=== PATIENT | female | born 1980 | race Caucasian/White ===

== ENCOUNTER 2018-07-10 02:55 | Emergency (ER) | payer OTHER ==
[2018-07-10 03:38] LABS: Absolute Lymphocytes (CBC) 2.5 K/uL (0.7-4.9); Absolute Monocytes 0.6 K/uL (0.1-1.3); Basophils % 0.6 % (0-1.3); Hematocrit 38.2 % (36.0-45.0); Lymphocytes % 30.3 % (15.3-44.8); MCH 31.6 pg (27.0-35.0); MCV 90.4 fL (80-100); MPV 8.5 fL (7.6-11.3); Monocytes % 7.7 % (3.3-12.3); RBC Red Blood Cell Count 4.23 M/uL (3.86-4.86)
[2018-07-10 03:41] LABS: Protime INR 1.03
[2018-07-10 03:52] LABS: Bilirubin Total 0.4 mg/dL (0.2-1.0); Potassium 4.1 mmol/L (3.5-5.1); Protein, Total 7.8 g/dL (6.4-8.2)
[2018-07-10 03:58] LABS: Urine Blood 2+ (NEG); Urine Glucose NEGATIVE (NEG); Urine Protein NEGATIVE (NEG); Urine Specific Gravity 1.015 (1.005-1.030); Urine pH 7.5 (5.0-7.0)
--- NOTE | 2018-07-10 04:55 | ER ---
Nurse's Notes [facility] Name: Madonna Khan Age: 37 yrs Sex: Female : 1980 Arrival Date: 07/10/2018 Time: 03:00 Bed 7 Private MD: Diagnosis: Dysfunctional uterine bleeding Presentation: 07/10 03:07 Presenting complaint: Patient states: she started her period last night and she woke up aa1 an hour after changing her pad and had completely soaked through her pad and a super tampon. Reports going to the restroom and had heavy bleeding and was passing lots of clots. Also c/o cramping. Transition of care: patient was not received from another setting of care. Onset of symptoms was July 09, 2018. Risk Assessment: Do you want to hurt yourself or someone else? Patient reports no desire to harm self or others. Initial Sepsis Screen: Does the patient meet any 2 criteria? No. Patient's initial sepsis screen is negative. Does the patient have a suspected source of infection? No. Patient's initial sepsis screen is negative. Care prior to arrival: None. 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 - Social history:: Smoking status: Patient/guardian denies using tobacco. - Ebola Screening: : No symptoms or risks identified at this time. Screenin:10 Abuse screen: Denies threats or abuse. Nutritional screening: No deficits noted. jd3 Tuberculosis screening: No symptoms or risk factors identified. Fall Risk Ambulatory Aid- None/Bed Rest/Nurse Assist (0 pts). Gait- Normal/Bed Rest/Wheelchair (0 pts) Mental Status- Oriented to own ability (0 pts). Total Lucero Fall Scale indicates No Risk (0-24 pts). Assessment: 03:08 General: Appears in no apparent distress. uncomfortable, Behavior is calm, cooperative, jd3 appropriate for age. Pain: Complains of pain in right lower quadrant and left lower quadrant Quality of pain is described as crampy. Neuro: Level of Consciousness is awake, alert, obeys commands, Oriented to person, place, time, situation, Appropriate for age. Cardiovascular: Capillary refill < 3 seconds Patient's skin is warm and dry. Respiratory: Airway is patent Respiratory effort is even, unlabored, Respiratory pattern is regular, symmetrical. GI: Abdomen is round Bowel sounds present X 4 quads. Abd is soft Abdomen is tender to palpation in right lower quadrant and left lower quadrant. : Last void was July 10, 2018. Reports vaginal bleeding that is. EENT: No signs and/or symptoms were reported regarding the EENT system. Derm: Skin is intact, Skin is dry, Skin is normal, Skin temperature is warm. Musculoskeletal: Circulation, motion, and sensation intact. Range of motion: intact in all extremities. 04:02 Reassessment: Patient appears in no apparent distress at this time. No changes from jd3 previously documented assessment. Patient and/or family updated on plan of care and expected duration. Pain level reassessed. Patient is alert, oriented x 3, equal unlabored respirations, skin warm/dry/pink. 05:01 Reassessment: Patient appears in no apparent distress at this time. Patient and/or jd3 family updated on plan of care and expected duration. Pain level reassessed. Patient is alert, oriented x 3, equal unlabored respirations, skin warm/dry/pink. Vital Signs: 03:11 BP 119 / 85; Pulse 80; Resp 16; Temp 98.9; Pulse Ox 99% on R/A; Weight 64.41 kg; Height aa1 5 ft. 6 in. (167.64 cm); Pain 6/10; 05:00 BP 109 / 76; Pulse 79; Resp 17 S; Pulse Ox 99% on R/A; jd3 03:11 Body Mass Index 22.92 (64.41 kg, 167.64 cm) aa1 ED Course: 03:00 Patient arrived in ED. al2 03:06 Rajat Andrew MD is Attending Physician. tw4 03:08 Cullen Lucas RN is Primary Nurse. jd3 03:10 Triage completed. aa1 03:10 Patient has correct armband on for positive identification. Bed in low position. Call jd3 light in reach. Side rails up X 1. Adult w/ patient. 03:10 Arm band placed on. jd3 03:30 Inserted saline lock: 20 gauge in right antecubital area, using aseptic technique. jd3 Blood collected. 05:18 No provider procedures requiring assistance completed. IV discontinued, intact, jd3 bleeding controlled, No redness/swelling at site. Pressure dressing applied. Administered Medications: No medications were administered Outcome: 04:54 Discharge ordered by . diego 05:18 Discharged to home ambulatory, with family. jd3 05:18 Condition: stable 05:18 Discharge instructions given to patient, family, Instructed on discharge instructions, follow up and referral plans. medication usage, Demonstrated understanding of instructions, follow-up care, medications, Prescriptions given X 1. 05:19 Patient left the ED. jd3 Signatures: Saniya Koroma, RN RN aa1 Cullen Lucas RN RN jd3 Janelle, Rajat Richter MD MD tw4
--- NOTE | 2018-07-10 04:55 | EDPHYS ---
Physician Documentation [facility] Name: Madonna Khan Age: 37 yrs Sex: Female : 1980 Arrival Date: 07/10/2018 Time: 03:00 Bed 7 Private MD: ED Physician Rajat Andrew HPI: 07/10 04:11 This 37 yrs old Female presents to ER via Ambulatory with complaints of tw4 Vaginal Bleeding. 04:11 The patient presents with vaginal bleeding that is heavy, with clots. Onset: The tw4 symptoms/episode began/occurred just prior to arrival, last night. Modifying factors: The symptoms are alleviated by nothing, the symptoms are aggravated by nothing. Associated signs and symptoms: Pertinent positives: cramping, Pertinent negatives: constipation, diarrhea, dyspareunia, dysuria, hematuria, nausea, urinary frequency, vaginal discharge, vomiting. Severity of symptoms: At their worst the symptoms were severe, in the emergency department the symptoms have improved. The patient is sexually active, reportedly has a single partner. The patient has not experienced similar symptoms in the past. 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 - Social history:: Smoking status: Patient/guardian denies using tobacco. - Ebola Screening: : No symptoms or risks identified at this time. ROS: 04:11 Positive for vaginal bleeding, Negative for injury or acute deformity, urinary tw4 symptoms. 04:11 Constitutional: Negative for fever, chills, and weight loss, Eyes: Negative for injury, pain, redness, and discharge, Cardiovascular: Negative for chest pain, palpitations, and edema, Respiratory: Negative for shortness of breath, cough, wheezing, and pleuritic chest pain, Abdomen/GI: Negative for abdominal pain, nausea, vomiting, diarrhea, and constipation, Back: Negative for injury and pain. 04:11 : Positive for pelvic pain, vaginal bleeding, Negative for injury or acute deformity, urinary symptoms, urinary frequency, small amounts, hematuria, burning with urination, difficulty urinating, bladder incontinence, foul smelling urine, vaginal discharge, vaginal itching, menstrual abnormality. Exam: 04:11 Constitutional: This is a well developed, well nourished patient who is awake, alert, tw4 and in no acute distress. Head/Face: Normocephalic, atraumatic. Vital Signs: 03:11 BP 119 / 85; Pulse 80; Resp 16; Temp 98.9; Pulse Ox 99% on R/A; Weight 64.41 kg; Height aa1 5 ft. 6 in. (167.64 cm); Pain 6/10; 05:00 BP 109 / 76; Pulse 79; Resp 17 S; Pulse Ox 99% on R/A; jd3 03:11 Body Mass Index 22.92 (64.41 kg, 167.64 cm) aa1 MDM: 03:06 Patient medically screened. tw4 04:24 Data reviewed: vital signs, nurses notes. Counseling: I had a detailed discussion with rust the patient and/or guardian regarding: the historical points, exam findings, and any diagnostic results supporting the discharge/admit diagnosis. Special discussion: I discussed with the patient/guardian in detail that at this point there is no indication for admission to the hospital. It is understood, however, that if the symptoms persist or worsen the patient needs to return immediately for re-evaluation. 07/10 03:07 Order name: CBC with Diff; Complete Time: 04:13 tw 07/10 04:13 Interpretation: Within normal limits. 07/10 03:07 Order name: CMP; Complete Time: 04:13 07/10 04:13 Interpretation: Normal except: BUN 20; GFR 70; AST 9; GLOB 3.8. 07/10 03:07 Order name: PT-INR; Complete Time: 04:13 07/10 04:13 Interpretation: Within normal limits: PT 12.1. 07/10 03:07 Order name: Ptt, Activated; Complete Time: 04:13 07/10 04:13 Interpretation: Within normal limits: PTT 30.5. 07/10 03:37 Order name: Urine Dipstick--Ancillary (enter results); Complete Time: 04:13 in 07/10 04:13 Interpretation: Normal except: UBLD 2+; UPH 7.5. 07/10 03:37 Order name: Urine --Ancillary (enter results); Complete Time: 04:13 mt 07/10 04:14 Interpretation: Within normal limits. tw4 07/10 03:07 Order name: Saline Lock; Complete Time: 03:37 tw4 07/10 03:19 Order name: Urine Test (obtain specimen); Complete Time: 03:37 jd3 07/10 03:37 Order name: Urine Dipstick-Ancillary (obtain specimen); Complete Time: 03:37 jd3 Administered Medications: No medications were administered Disposition: 07/10/18 04:54 Discharged to Home. Impression: Dysfunctional uterine bleeding. - Condition is Stable. - Discharge Instructions: Dysmenorrhea, [id number]. - Prescriptions for norgestrel- ethinyl estradiol 0.5-50 mg-mcg Oral tablet - take 1 tablet by ORAL route once daily; 28 tablet. - Work release form, Family Work Release, Medication Reconciliation Form, Thank You Letter, Antibiotic Education, Prescription Opioid Use form. - Follow up: Private Physician; When: Upon discharge from the Emergency Department; Reason: Further diagnostic work-up, Recheck today's complaints, Continuance of care, Re-evaluation by your physician. - Problem is new. - Symptoms have improved. Signatures: Dispatcher [employer] EDMS Saniya Koroma RN RN aa1 Cullen Lucas RN RN jd3 Rajat Andrew MD MD tw4 Corrections: (The following items were deleted from the chart) 05:19 04:54 07/10/2018 04:54 Discharged to Home. Impression: Dysfunctional uterine bleeding. jd3 Condition is Stable. Forms are Medication Reconciliation Form, Thank You Letter, Antibiotic Education, Prescription Opioid Use. Follow up: Private Physician; When: Upon discharge from the Emergency Department; Reason: Further diagnostic work-up, Recheck today's complaints, Continuance of care, Re-evaluation by your physician. Problem is new. Symptoms have improved. tw4
== END 2018-07-10 05:19 | disposition home or self-care (01) ==
LOC: ER 02:55
DX: N93.8 Other specified abnormal uterine and vaginal bleeding (principal)
CPT/HCPCS: 36415; 80053; 81003; 81025; 85025; 85610; 85730; 99283

== ENCOUNTER 2018-09-01 13:11 | Emergency (ER) | payer OTHER ==
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
[2018-09-01] MEDS ORDERED: BISACODYL 10 MG RECTAL SUPP ONE (15:04)
[2018-09-01] MEDS ORDERED: MAGNESIUM CITRATE 300 ML BOT ONE (15:05)
[2018-09-01] MEDS ORDERED: KETOROLAC 30 MG/ML INJ ONE (15:05)
[2018-09-01] MEDS ORDERED: HYDROCODONE/APAP 7.5/325 MG TAB ONE (15:06)
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
[2018-09-01 16:29] LABS: Urine Blood 1+ (NEG); Urine Glucose NEGATIVE (NEG); Urine Protein NEGATIVE (NEG); Urine pH 5.5 (5.0-7.0)
== END 2018-09-01 15:49 | disposition home or self-care (01) ==
LOC: ER 13:11
DX: S16.1XXA Strain of muscle, fascia and tendon at neck level, initial encounter (principal); V49.50XA Passenger injured in collision with unspecified motor vehicles in traffic accident, initial encounter
CPT/HCPCS: 70450; 71250; 72125; 81003; 81025; 96372; 99285

== ENCOUNTER 2019-03-21 15:39 | Emergency (ER) | payer OTHER ==
[2019-03-21] MEDS ORDERED: DEXAMETHASONE 10 MG/ML VIAL ONE (16:30)
[2019-03-21] MEDS ORDERED: METOCLOPRAMIDE 10 MG/2mL INJ ONE (16:31)
[2019-03-21] MEDS ORDERED: DIPHENHYDRAMINE 50 MG/ML VIAL ONE (16:31)
[2019-03-21] MEDS ORDERED: NA CHLORIDE 0.9% 1,000 ML ONE (16:31)
[2019-03-21] MEDS ORDERED: ONDANSETRON 4 MG/2 ML VIAL ONE (16:31)
[2019-03-21 16:33] LABS: Urine Blood NEGATIVE (NEG); Urine Glucose NEGATIVE (NEG); Urine Protein NEGATIVE (NEG); Urine Specific Gravity 1.005 (1.005-1.030); Urine pH 6.5 (5.0-7.0)
[2019-03-21 16:34] LABS: Absolute Lymphocytes (CBC) 1.8 K/uL (0.7-4.9); Absolute Monocytes 0.3 K/uL (0.1-1.3); Absolute Neutrophil 4.4 K/uL (1.8-8.0); Basophils % 1.2 % (0-1.3); Eosinophils % 0.8 % (0-4.4); Hematocrit 40.6 % (36.0-45.0); Lymphocytes % 27.5 % (15.3-44.8); MPV 8.6 fL (7.6-11.3); Monocytes % 5.1 % (3.3-12.3); RBC Red Blood Cell Count 4.47 M/uL (3.86-4.86)
[2019-03-21] MEDS ORDERED: KETOROLAC 30 MG/ML INJ ONE (16:34)
[2019-03-21 16:40] LABS: Protime INR 0.99
[2019-03-21 16:43] LABS: Magnesium 2.4 mg/dL (1.8-2.4)
--- NOTE | 2019-03-21 16:48 | RAD REPORT ---
EXAM DESCRIPTION: CT - Head Brain Wo Cont - 03/21/2019 4:38 pm CLINICAL HISTORY: HEADACHE COMPARISON: No comparisons TECHNIQUE: All CT scans are performed using dose optimization technique as appropriate and may inclu de automated exposure control or mA/KV adjustment according to patient size. FINDINGS: No intracranial hemorrhage, hydrocephalus or extra-axial fluid collection.No areas of brai n edema or evidence of midline shift. The paranasal sinuses and mastoids are clear. The calvarium is intact. IMPRESSION: No acute intracranial abnormality.
--- NOTE | 2019-03-21 18:03 | EDPHYS ---
Physician Documentation [facility] Name: Madonna Khan Age: 38 yrs Sex: Female : 1980 Arrival Date: 03/21/2019 Time: 15:42 Bed 16 Private MD: Prem De Anda V ED Physician Rishi Ricks HPI: 03/21 16:15 This 38 yrs old Female presents to ER via Ambulatory with complaints of cp Headache, Nausea. 16:15 The patient complains of pain to the left side of head radiating to back of head. cp 16:15 The patient describes the headache as aching, waxing and waning. Onset: The cp symptoms/episode began/occurred 3 day(s) ago. Associated signs and symptoms: Pertinent positives: nausea, Photophobia Pertinent negatives: altered mental status, fever, neck stiffness, paresthesias, rash, sinus congestion, sinus tenderness, vision loss, vomiting, weakness. 16:15 Severity of symptoms: in the emergency department the pain is unchanged, despite home cp interventions. 16:15 Headache History: The patient has had previous headaches and this one is similar to cp previous episodes. The symptoms are alleviated by nothing. Patient also reports menstrual bleeding times 2 weeks that is now light bleeding. 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 - Social history:: Smoking status: Patient/guardian denies using tobacco. - Ebola Screening: : No symptoms or risks identified at this time. ROS: 16:20 Constitutional: Negative for body aches, chills, fever, poor PO intake. cp 16:20 Eyes: Positive for photophobia, Negative for discharge, redness, vision loss. cp 16:20 Cardiovascular: Negative for chest pain, edema, palpitations. cp 16:20 Respiratory: Negative for cough, shortness of breath, wheezing. 16:20 Abdomen/GI: Positive for nausea, Negative for abdominal pain, vomiting, diarrhea, constipation, anorexia, black/tarry stool, rectal bleeding. 16:20 Back: Negative for pain at rest, pain with movement, radiated pain. 16:20 ENT: Negative for injury, pain, and discharge. cp 16:20 Neck: Negative for pain with movement, pain at rest, stiffness, swollen nodes. 16:20 : Positive for vaginal bleeding, Negative for urinary symptoms. 16:20 MS/extremity: Negative for injury or acute deformity, paresthesias. 16:20 Skin: Negative for cellulitis, rash. 16:20 Neuro: Positive for headache, Negative for altered mental status, dizziness, numbness, syncope, weakness. 16:20 All other systems are negative. Exam: 16:25 Constitutional: The patient appears in no acute distress, alert, awake, non-toxic, well cp developed, well nourished, uncomfortable. 16:25 Head/Face: Normocephalic, atraumatic. Eyes: Pupils equal round and reactive to light, cp extra-ocular motions intact. Lids and lashes normal. Conjunctiva and sclera are non-icteric and not injected. Cornea within normal limits. Periorbital areas with no swelling, redness, or edema. ENT: Nares patent. No nasal discharge, no septal abnormalities noted. Tympanic membranes are normal and external auditory canals are clear. Oropharynx with no redness, swelling, or masses, exudates, or evidence of obstruction, uvula midline. Mucous membranes moist. Neck: Trachea midline, no thyromegaly or masses palpated, and no cervical lymphadenopathy. Supple, full range of motion without nuchal rigidity, or vertebral point tenderness. No Meningismus. 16:25 Chest/axilla: Inspection: normal. 16:25 Cardiovascular: Rate: tachycardic, Rhythm: regular, Heart sounds: murmur, not appreciated, Edema: is not appreciated. 16:25 Respiratory: the patient does not display signs of respiratory distress, Respirations: normal, no use of accessory muscles, no retractions, no splinting, no tachypnea, labored breathing, is not present, Breath sounds: are clear throughout, no decreased breath sounds, no stridor, no wheezing. 16:25 Abdomen/GI: Inspection: abdomen appears normal, Bowel sounds: active, all quadrants, Palpation: abdomen is soft and non-tender, in all quadrants. 16:25 Back: pain, is absent, ROM is normal. 16:25 Musculoskeletal/extremity: Exam is negative for decreased range of motion, deformity, injury. 16:25 Skin: cellulitis, is not appreciated, no rash present. 16:25 Neuro: Orientation: to person, place \T\ time. Mentation: is normal, Cerebellar function: is grossly normal, Motor: is normal, Sensation: is normal. 17:37 ECG was reviewed by the Attending Physician. Vital Signs: 15:47 BP 145 / 90; Pulse 105; Resp 16; Temp 98.4; Pulse Ox 99% on R/A; Weight 65.32 kg; la1 Height 5 ft. 6 in. (167.64 cm); Pain 10/10; 17:01 BP 112 / 82; Pulse 75; Resp 17; Pulse Ox 99% on R/A; tw2 17:17 BP 110 / 73 Supine; Pulse 83; tw2 17:17 BP 115 / 79 Sitting; Pulse 75; tw2 17:17 BP 106 / 87 Standing; Pulse 80; tw2 17:57 BP 111 / 65; Pulse 66; Resp 17; Pulse Ox 100% on R/A; Pain 5/10; tw2 15:47 Body Mass Index 23.24 (65.32 kg, 167.64 cm) la1 MDM: 16:00 Patient medically screened. 16:30 Differential diagnosis: hypertensive headache, meningoencephalitis, migraine, cp sinusitis, subarachnoid bleed, tension headache, anemia. 18:01 ED course: Patient resting in exam room and reports headache improved. 18:02 Data reviewed: vital signs, nurses notes, lab test result(s), EKG, radiologic studies, cp CT scan. 18:02 Test interpretation: by ED physician or midlevel provider: ECG. Counseling: I had a detailed discussion with the patient and/or guardian regarding: the historical points, exam findings, and any diagnostic results supporting the discharge/admit diagnosis, lab results, radiology results, to return to the emergency department if symptoms worsen or persist or if there are any questions or concerns that arise at home. Response to treatment: the patient's symptoms have markedly improved after treatment, and as a result, I will discharge patient. 03/21 16:05 Order name: Urine Dipstick--Ancillary (enter results); Complete Time: 16:52 eb 03/21 16:11 Order name: CBC with Diff; Complete Time: 16:52 03/21 17:05 Interpretation: Reviewed. 03/21 16:11 Order name: BMP; Complete Time: 16:52 cp 03/21 17:05 Interpretation: Normal except: CL 110; GFR 81. cp 03/21 16:11 Order name: Magnesium; Complete Time: 16:52 cp 03/21 16:11 Order name: PT-INR; Complete Time: 16:52 cp 03/21 16:11 Order name: Test, Serum; Complete Time: 17:05 cp 03/21 16:13 Order name: CT Head Brain wo Cont; Complete Time: 16:52 cp 03/21 16:53 Interpretation: Report reviewed. cp 03/21 16:26 Order name: PTT, Activated Partial Thromb; Complete Time: 16:52 EDMS 03/21 16:11 Order name: Orthostatics; Complete Time: 17:17 cp 03/21 16:11 Order name: EKG; Complete Time: 16:12 cp 03/21 16:11 Order name: EKG - Nurse/Tech; Complete Time: 17:23 cp 03/21 16:11 Order name: Urine Dipstick-Ancillary (obtain specimen); Complete Time: 16:28 cp 03/21 16:11 Order name: Urine Test (obtain specimen); Complete Time: 16:28 cp 03/21 16:11 Order name: IV; Complete Time: 16:28 cp EC:37 Rate is 69 beats/min. Rhythm is regular. MO interval is normal. QRS interval is normal. cp QT interval is normal. T waves are Inverted in lead aVL. Interpreted by me. Reviewed by me. Administered Medications: 16:24 Drug: Zofran 4 mg Route: IVP; Site: left antecubital; tw2 17:15 Follow up: Response: No adverse reaction; Nausea is decreased tw2 16:26 Drug: Reglan 10 mg Route: IVP; Site: left antecubital; tw2 17:16 Follow up: Response: No adverse reaction tw2 16:30 Drug: Benadryl 25 mg Route: IVP; Site: left antecubital; tw2 17:16 Follow up: Response: No adverse reaction tw2 16:32 Drug: NS 0.9% 1000 ml Route: IV; Rate: 1 bolus; Site: left antecubital; tw2 18:04 Follow up: Response: No adverse reaction; IV Status: Completed infusion; IV Intake: tw2 1000ml 17:12 Drug: TORadol - Ketorolac 15 mg Route: IVP; Site: left antecubital; tw2 18:04 Follow up: Response: No adverse reaction; Pain is decreased tw2 17:15 Drug: Decadron - Dexamethasone 10 mg Route: IVP; Site: left antecubital; tw2 18:04 Follow up: Response: No adverse reaction tw2 Disposition: 18:36 Co-signature as Attending Physician, Rishi Ricks MD. rn Disposition: 03/21/19 18:02 Discharged to Home. Impression: Headache. - Condition is Stable. - Discharge Instructions: Migraine Headache. - Prescriptions for Ibuprofen 800 mg Oral Tablet - take 1 tablet by ORAL route every 8 hours As needed take with food; 30 tablet. Zofran 4 mg Oral Tablet - take 1 tablet by ORAL route every 12 hours As needed; 20 tablet. - Medication Reconciliation Form, Thank You Letter, Antibiotic Education, Prescription Opioid Use, Work release form, Family Work Release form. - Follow up: Private Physician; When: 1 - 2 days; Reason: Recheck today's complaints. - Problem is new. - Symptoms have improved. Signatures: Dispatcher [employer] [facility] Rishi Ricks MD MD rn Attema, Lee, RN RN la1 Mesfin Mohan PA PA cp Nicole Villafuerte RN RN tw2 Corrections: (The following items were deleted from the chart) 16:26 16:13 PTT, ACTIVATED+[id number].BRZ ordered. [facility] 18:12 18:02 03/21/2019 18:02 Discharged to Home. Impression: Headache. Condition is Stable. tw2 Forms are Work release form, Family Work Release, Medication Reconciliation Form, Thank You Letter, Antibiotic Education, Prescription Opioid Use. Follow up: Private Physician; When: 1 - 2 days; Reason: Recheck today's complaints. Problem is new. Symptoms have improved. cp
--- NOTE | 2019-03-21 18:03 | ER ---
Nurse's Notes [facility] Name: Madonna Khan Age: 38 yrs Sex: Female : 1980 Arrival Date: 03/21/2019 Time: 15:42 Bed 16 Private MD: Prem De Anda V Diagnosis: Headache Presentation: 03/21 15:46 Presenting complaint: Patient states: I have had a migraine since Saturday, yesterday la1 I took fioracet and it helped but today I cant get it to go away. Transition of care: patient was not received from another setting of care. Onset of symptoms was March 21, 2019. Risk Assessment: Do you want to hurt yourself or someone else? Patient reports no desire to harm self or others. Initial Sepsis Screen: Does the patient meet any 2 criteria? No. Patient's initial sepsis screen is negative. Does the patient have a suspected source of infection? No. Patient's initial sepsis screen is negative. Care prior to arrival: None. 15:46 Method Of Arrival: Ambulatory la1 15:46 Acuity: JOSUE 3 la1 Triage Assessment: 15:50 Headache History: Other pt reports "i have a lot of stress right now". General: Appears tw2 in no apparent distress. uncomfortable. Pain: Pain Also complains of photophobia. 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 - Social history:: Smoking status: Patient/guardian denies using tobacco. - Ebola Screening: : No symptoms or risks identified at this time. Screenin:52 Abuse screen: Denies threats or abuse. Nutritional screening: No deficits noted. tw2 Tuberculosis screening: No symptoms or risk factors identified. Fall Risk None identified. Assessment: 15:50 General: Appears in no apparent distress. uncomfortable, Behavior is calm, cooperative, tw2 appropriate for age. Pain: Complains of pain in "headache" Pain began 4 days ago. Neuro: Level of Consciousness is awake, alert, obeys commands, Oriented to person, place, time, situation. Cardiovascular: Heart tones S1 S2 Patient's skin is warm and dry. Respiratory: Airway is patent Respiratory effort is even, unlabored, Respiratory pattern is regular, symmetrical, Breath sounds are clear bilaterally. GI: Abdomen is flat, Bowel sounds present X 4 quads. Reports nausea. : No signs and/or symptoms were reported regarding the genitourinary system. EENT: No signs and/or symptoms were reported regarding the EENT system. Derm: No signs and/or symptoms reported regarding the dermatologic system. Musculoskeletal: Range of motion: intact in all extremities. 16:04 Reassessment: provider at bedside at this time. tw2 17:01 Reassessment: Patient appears in no apparent distress at this time. Patient and/or tw2 family updated on plan of care and expected duration. Pain level reassessed. Patient is alert, oriented x 3, equal unlabored respirations, skin warm/dry/pink. 17:58 Reassessment: Patient appears in no apparent distress at this time. Patient and/or tw2 family updated on plan of care and expected duration. Pain level reassessed. Patient is alert, oriented x 3, equal unlabored respirations, skin warm/dry/pink. Patient states feeling better. Patient states symptoms have improved. Vital Signs: 15:47 BP 145 / 90; Pulse 105; Resp 16; Temp 98.4; Pulse Ox 99% on R/A; Weight 65.32 kg; la1 Height 5 ft. 6 in. (167.64 cm); Pain 10/10; 17:01 BP 112 / 82; Pulse 75; Resp 17; Pulse Ox 99% on R/A; tw2 17:17 BP 110 / 73 Supine; Pulse 83; tw2 17:17 BP 115 / 79 Sitting; Pulse 75; tw2 17:17 BP 106 / 87 Standing; Pulse 80; tw2 17:57 BP 111 / 65; Pulse 66; Resp 17; Pulse Ox 100% on R/A; Pain 5/10; tw2 15:47 Body Mass Index 23.24 (65.32 kg, 167.64 cm) la1 ED Course: 15:42 Patient arrived in ED. mr 15:42 Prem De Anda MD is Private Physician. mr 15:46 Triage completed. la1 15:47 Arm band placed on right wrist. la1 15:52 Villafuerte, Nicole, RN is Primary Nurse. tw2 15:53 Bed in low position. Call light in reach. Pulse ox on. NIBP on. tw2 16:00 Mesfin Mohan PA is PHCP. cp 16:00 Rishi Ricks MD is Attending Physician. cp 16:27 Initial lab(s) drawn, by ct, sent to lab. Inserted saline lock: 22 gauge in left kj1 antecubital area, using aseptic technique. 16:27 Urine collected: clean catch specimen, clear. kj1 16:28 Test, Serum Sent. kj1 16:[address] mw3 16:38 CT Head Brain wo Cont In Process Unspecified. EDMS 16:38 CT completed. Patient tolerated procedure well. Patient moved back from CT. mw3 18:11 No provider procedures requiring assistance completed. IV discontinued, intact, tw2 bleeding controlled, No redness/swelling at site. Pressure dressing applied. Administered Medications: 16:24 Drug: Zofran 4 mg Route: IVP; Site: left antecubital; tw2 17:15 Follow up: Response: No adverse reaction; Nausea is decreased tw2 16:26 Drug: Reglan 10 mg Route: IVP; Site: left antecubital; tw2 17:16 Follow up: Response: No adverse reaction tw2 16:30 Drug: Benadryl 25 mg Route: IVP; Site: left antecubital; tw2 17:16 Follow up: Response: No adverse reaction tw2 16:32 Drug: NS 0.9% 1000 ml Route: IV; Rate: 1 bolus; Site: left antecubital; tw2 18:04 Follow up: Response: No adverse reaction; IV Status: Completed infusion; IV Intake: tw2 1000ml 17:12 Drug: TORadol - Ketorolac 15 mg Route: IVP; Site: left antecubital; tw2 18:04 Follow up: Response: No adverse reaction; Pain is decreased tw2 17:15 Drug: Decadron - Dexamethasone 10 mg Route: IVP; Site: left antecubital; tw2 18:04 Follow up: Response: No adverse reaction tw2 Intake: 18:04 IV: 1000ml; Total: 1000ml. tw2 Outcome: 18:02 Discharge ordered by . cp 18:11 Discharged to home ambulatory, with significant other. tw2 18:11 Condition: stable 18:11 Discharge instructions given to patient, significant other, Instructed on discharge instructions, follow up and referral plans. medication usage, Demonstrated understanding of instructions, follow-up care, medications, Prescriptions given X 2. 18:12 Patient left the ED. tw2 Signatures: Dispatcher [employer] ED TinoJacque MoreliaMickey, RN RN la1 Mesfin Mohan PA PA cp Wise, Tara, RN RN tw2 Veronica Barros 3 Afua Gonzales kj1
--- NOTE | 2019-03-22 08:47 | EKG ---
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
== END 2019-03-21 18:12 | disposition home or self-care (01) ==
LOC: ER 15:39
DX: R51 Headache (principal)
CPT/HCPCS: 36415; 70450; 80048; 81003; 83735; 84703; 85025; 85610; 85730; 93005; 96361; 96374; 96375; 99284; J1100; J2405; J2765; J7030

== ENCOUNTER 2020-08-23 15:45 | Emergency (ER) | payer OTHER ==
--- OUTSIDE RECORDS SUMMARY | 2020-08-23 16:01 | XMS REPORT | Continuity of Care Document ---
:1980 Author Organization [facility] t Address [address] [place] [address] Dr. Castelan [address] [place] [id number] Care Team Providers Name Role Phone Unavailable Unavailable Unavailable Problems This patient has no known problems. Allergies, Adverse Reactions, Alerts This patient has no known allergies or adverse reactions. Medications This patient has no known medications. Procedures This patient has no known procedures. Results This patient has no known results.
[2020-08-23] MEDS ORDERED: MEPERIDINE HCL 50 MG/ML ONE (17:34)
[2020-08-23] MEDS ORDERED: ONDANSETRON 4 MG/2 ML VIAL ONE (17:34)
[2020-08-23 17:42] LABS: Absolute Lymphocytes (CBC) 2.4 K/uL (0.7-4.9); Basophils % 1.2 % (0-1.3); Hematocrit 39.5 % (36.0-45.0); Lymphocytes % 25.3 % (15.3-44.8); RBC Red Blood Cell Count 4.45 M/uL (3.86-4.86)
[2020-08-23] MEDS ORDERED: PROMETHAZINE INJ 25 MG/ML AMP ONE (17:47)
[2020-08-23 17:54] LABS: Urine Blood NEGATIVE (NEG); Urine Glucose NEGATIVE (NEG); Urine Protein NEGATIVE (NEG); Urine Specific Gravity 1.015 (1.005-1.030)
--- NOTE | 2020-08-23 17:59 | RAD REPORT ---
EXAM DESCRIPTION: CT - Abdomen Pelvis W Contrast - 08/23/2020 5:50 pm CLINICAL HISTORY: RLQ abd pain, rule out appendicitis COMPARISON: Abdomen Pelvis W Contrast dated 02/16/2016 TECHNIQUE: Biphasic, helical CT imaging of the abdomen and pelvis was performed following 100 ml non -ionic IV contrast. No oral contrast administered. All CT scans are performed using dose optimization technique as appropriate and may include automated exposure control or mA/KV adjustment according to patient size. FINDINGS: No suspicious findings in the lung bases. The liver, spleen, and pancreas show no suspicious findings. Gallbladder and biliary tree are also wi thout suspicious finding. Symmetric renal function is seen with no hydronephrosis or suspicious renal mass. No pyelonephritis o r acute parenchymal process. No bladder abnormalities. No adrenal abnormalities. No uterine or left ovarian abnormality seen. Right ovary contains a 3.1 centimeter cyst. No dilated bowel loops or bowel wall thickening. Appendix is not clearly defined. No suspicion for ac [place] appendicitis. No free air or pneumatosis. Trace amount of fluid in the cul de sac is within dinesh l physiologic limits. No hernia, mass or bulky lymphadenopathy. No suspicious bony findings. IMPRESSION: Contrast enhanced CT abdomen and pelvis showing no emergent finding. Appendicitis is not suspected. The patient does have a 3.1 centimeter right ovarian cyst.
[2020-08-23 18:00] LABS: Urine Bacteria <20 /HPF (<20); Urine Culture Reflex Order NOT NEEDED; Urine RBC NONE SEEN /HPF (NONE SEEN)
[2020-08-23 18:09] LABS: ALT/SGPT 18 U/L (12-78); AST/SGOT 14 U/L (15-37); Albumin 3.9 g/dL (3.4-5.0); Alkaline Phosphatase 73 U/L (45-117); BUN Blood Urea Nitrogen 13 mg/dL (7-18); Bicarbonate 29 mmol/L (21-32); Bilirubin Direct < 0.1 mg/dL (0-0.2); Bilirubin Total 0.3 mg/dL (0.2-1.0); Glucose Level 87 mg/dL (74-106); Lipase 118 U/L (73-393); Potassium 3.4 mmol/L (3.5-5.1); Protein, Total 8.1 g/dL (6.4-8.2); Sodium Level 139 mmol/L (136-145)
--- NOTE | 2020-08-23 18:21 | EDPHYS ---
Physician Documentation [facility] Name: Madonna Khan Age: 40 yrs Sex: Female : 1980 Arrival Date: 08/23/2020 Time: 15:47 Bed 16 Private MD: ED Physician Rishi Ricks HPI: 08/23 18:00 This 40 yrs old Female presents to ER via Ambulatory with complaints of rn Abdominal Pain. 18:00 The patient presents with abdominal pain right lower quadrant. Onset: The rn symptoms/episode began/occurred 2 day(s) ago. The symptoms do not radiate. Associated signs and symptoms: Pertinent positives: nausea and vomiting, Pertinent negatives: anorexia, blood in stools, fever. Modifying factors: The symptoms are alleviated by nothing, the symptoms are aggravated by nothing. Severity of pain: At its worst the pain was moderate in the emergency department the pain has improved. The patient has not experienced similar symptoms in the past. Reports 2 days of RLQ abd pain, + nausea, no fever, no diarrhea, no trauma. . 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 - Social history:: Smoking status: Patient denies any tobacco usage or history of. - Family history:: not pertinent. - Hospitalizations: : No recent hospitalization is reported. ROS: 18:00 Constitutional: Negative for fever, chills, and weight loss, Eyes: Negative for injury, rn pain, redness, and discharge, Cardiovascular: Negative for chest pain, palpitations, and edema, Respiratory: Negative for shortness of breath, cough, wheezing, and pleuritic chest pain, Abdomen/GI: Negative for diarrhea, and constipation, MS/Extremity: Negative for injury and deformity, Skin: Negative for injury, rash, and discoloration, Neuro: Negative for headache, weakness, numbness, tingling, and seizure. Exam: 18:00 Constitutional: This is a well developed, well nourished patient who is awake, alert, rn and in no acute distress. Head/Face: Normocephalic, atraumatic. Cardiovascular: Regular rate and rhythm. No pulse deficits. Respiratory: No increased work of breathing, no retractions or nasal flaring. Abdomen/GI: soft, mild RLQ tenderness Skin: Warm, dry MS/ Extremity: Pulses equal, no cyanosis. Neuro: Awake and alert, GCS 15 Vital Signs: 15:52 BP 115 / 90; Pulse 90; Resp 17 S; Temp 98.1(O); Pulse Ox 98% on R/A; Weight 76.66 kg jd3 (R); Height 5 ft. 6 in. (167.64 cm) (R); Pain 9/10; 18:00 BP 124 / 72; Pulse 81; Resp 17; Pulse Ox 100% ; jl7 15:52 Body Mass Index 27.28 (76.66 kg, 167.64 cm) jd3 MDM: 17:02 Patient medically screened. rn 18:19 Differential diagnosis: appendicitis, non-specific abd pain, ovarian cyst. Data rn reviewed: vital signs, nurses notes, lab test result(s), radiologic studies, CT scan, and as a result, I will discharge patient. Counseling: I had a detailed discussion with the patient and/or guardian regarding: the historical points, exam findings, and any diagnostic results supporting the discharge/admit diagnosis, lab results, radiology results, the need for outpatient follow up, to return to the emergency department if symptoms worsen or persist or if there are any questions or concerns that arise at home. Special discussion: Based on the patient's Hx, exam, and Dx evaluation, there is no indication for emergent surgery or inpatient Tx. It is understood by the patient/guardian that if the Sx's persist or worsen they need to return immediately for re-evaluation. I discussed with the patient/guardian in detail that at this point there is no indication for admission to the hospital. It is understood, however, that if the symptoms persist or worsen the patient needs to return immediately for re-evaluation. 08/23 17: Order name: Basic Metabolic Panel; Complete Time: 18: rn 08/23 17: Order name: CBC with Diff; Complete Time: 18:07 rn 08/23 17: Order name: Hepatic Function; Complete Time: 18: rn 08/23 17: Order name: Lipase; Complete Time: 18: rn 08/23 17:11 Order name: Urine Microscopic Only; Complete Time: 18:07 rn 08/23 17:36 Order name: Urine Dipstick--Ancillary (enter results); Complete Time: 18:07 bd 08/23 17:11 Order name: IV Saline Lock; Complete Time: 17:30 rn 08/23 17:11 Order name: Labs collected and sent; Complete Time: 17:30 rn 08/23 17:11 Order name: CT Abd/Pelvis - IV Contrast Only; Complete Time: 18:07 rn 08/23 17:11 Order name: Urine Dipstick-Ancillary (obtain specimen); Complete Time: 17:30 rn 08/23 17:36 Order name: Urine --Ancillary (enter results); Complete Time: 18:07 bd Administered Medications: 17:25 Drug: Zofran (Ondansetron) 4 mg Route: IVP; Site: left antecubital; ca1 17:30 Follow up: Response: No adverse reaction; Nausea unchanged jl7 17:27 Drug: Demerol 25 mg {Note: rass 0.} Route: IVP; Site: left antecubital; ca1 17:50 Follow up: Response: No adverse reaction; Pain is decreased jl7 17:34 Drug: Phenergan 12.5 mg Route: IVP; Site: left antecubital; jl7 18:00 Follow up: Response: No adverse reaction; Nausea is decreased jl7 Disposition: 08/23/20 18:20 Discharged to Home. Impression: Lower abdominal pain, unspecified, Unspecified ovarian cysts. - Condition is Stable. - Discharge Instructions: Abdominal Pain, Adult, Ovarian Cyst. - Medication Reconciliation Form, Thank You Letter, Antibiotic Education, Prescription Opioid Use form. - Follow up: Private Physician; When: As needed; Reason: Recheck today's complaints, Re-evaluation by your physician. - Problem is new. - Symptoms have improved. Signatures: Dispatcher [employer] EDRishi Ayala MD MD rn Leal, Jahala, RN RN jl7 Cullen Lucas RN RN jd3 Emily Reyes RN RN ca1 Corrections: (The following items were deleted from the chart) 18:35 18:20 08/23/2020 18:20 Discharged to Home. Impression: Lower abdominal pain, jl7 unspecified; Unspecified ovarian cysts. Condition is Stable. Forms are Medication Reconciliation Form, Thank You Letter, Antibiotic Education, Prescription Opioid Use. Follow up: Private Physician; When: As needed; Reason: Recheck today's complaints, Re-evaluation by your physician. Problem is new. Symptoms have improved. rn
--- NOTE | 2020-08-23 18:21 | ER ---
Nurse's Notes [facility] Name: Madonna Khan Age: 40 yrs Sex: Female : 1980 Arrival Date: 08/23/2020 Time: 15:47 Bed 16 Private MD: Diagnosis: Lower abdominal pain, unspecified;Unspecified ovarian cysts Presentation: 08/23 15:50 Chief complaint: Patient states: "am having abdominal pain in the lower right side and jd3 the constet pressure of needing to poop, but i only go a little at the time.". Coronavirus screen: At this time, the client does not indicate any symptoms associated with coronavirus-19. Ebola Screen: Patient negative for fever greater than or equal to 101.5 degrees Fahrenheit, and additional compatible Ebola Virus Disease symptoms. Initial Sepsis Screen: Does the patient meet any 2 criteria? No. Patient's initial sepsis screen is negative. Does the patient have a suspected source of infection? No. Patient's initial sepsis screen is negative. Risk Assessment: Do you want to hurt yourself or someone else? Patient reports no desire to harm self or others. Onset of symptoms was August 23, 2020. 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 - Social history:: Smoking status: Patient denies any tobacco usage or history of. - Family history:: not pertinent. - Hospitalizations: : No recent hospitalization is reported. Screenin:05 Abuse screen: Denies threats or abuse. Denies injuries from another. Nutritional ca1 screening: No deficits noted. Tuberculosis screening: No symptoms or risk factors identified. Fall Risk IV access (20 points). Assessment: 17:05 General: Appears in no apparent distress. comfortable, Behavior is calm, cooperative, ca1 appropriate for age. Pain: Complains of pain in right lower quadrant Pain does not radiate. Pain currently is 7 out of 10 on a pain scale. Pain began 2-3 days ago. Is intermittent. Neuro: Level of Consciousness is awake, alert, obeys commands, Oriented to person, place, time, situation. Cardiovascular: Heart tones S1 S2 present Capillary refill < 3 seconds Patient's skin is warm and dry. Respiratory: Airway is patent Respiratory effort is even, unlabored, Respiratory pattern is regular, symmetrical, Breath sounds are clear bilaterally. GI: Abdomen is flat, non-distended, Bowel sounds present X 4 quads. Abd is soft X 4 quads Abdomen is tender to palpation in right lower quadrant Reports nausea. : No signs and/or symptoms were reported regarding the genitourinary system. EENT: No signs and/or symptoms were reported regarding the EENT system. Derm: Skin is intact, is healthy with good turgor, Skin is pink, warm \\T\\ dry. Musculoskeletal: Circulation, motion, and sensation intact. Capillary refill < 3 seconds. 18:00 Reassessment: Patient appears in no apparent distress at this time. Patient and/or jl7 family updated on plan of care and expected duration. Pain level reassessed. Patient is alert, oriented x 3, equal unlabored respirations, skin warm/dry/pink. Patient states feeling better. Patient states symptoms have improved. Vital Signs: 15:52 BP 115 / 90; Pulse 90; Resp 17 S; Temp 98.1(O); Pulse Ox 98% on R/A; Weight 76.66 kg jd3 (R); Height 5 ft. 6 in. (167.64 cm) (R); Pain 9/10; 18:00 BP 124 / 72; Pulse 81; Resp 17; Pulse Ox 100% ; jl7 15:52 Body Mass Index 27.28 (76.66 kg, 167.64 cm) jd3 ED Course: 15:47 Patient arrived in ED. mr 15:52 Triage completed. jd3 15:52 Arm band placed on. jd3 17:02 Rishi Ricks MD is Attending Physician. rn 17:05 Patient has correct armband on for positive identification. Placed in gown. Bed in low ca1 position. Call light in reach. Side rails up X 1. Pulse ox on. NIBP on. Warm blanket given. 17:10 Christine Benoit RN is Primary Nurse. jl7 17:23 No provider procedures requiring assistance completed. Initial lab(s) drawn, by ia, ca1 sent to lab. Urine collected: clean catch specimen, clear. Inserted saline lock: 20 gauge in left antecubital area, using aseptic technique. Blood collected. 17:50 CT Abd/Pelvis - IV Contrast Only In Process Unspecified. EDMS 18:35 IV discontinued, intact, bleeding controlled, No redness/swelling at site. Pressure jl7 dressing applied. Administered Medications: 17:25 Drug: Zofran (Ondansetron) 4 mg Route: IVP; Site: left antecubital; ca1 17:30 Follow up: Response: No adverse reaction; Nausea unchanged jl7 17:27 Drug: Demerol 25 mg {Note: rass 0.} Route: IVP; Site: left antecubital; ca1 17:50 Follow up: Response: No adverse reaction; Pain is decreased jl7 17:34 Drug: Phenergan 12.5 mg Route: IVP; Site: left antecubital; jl7 18:00 Follow up: Response: No adverse reaction; Nausea is decreased jl7 Outcome: 18:20 Discharge ordered by . rn 18:35 Discharged to home via wheelchair, with family. jl7 18:35 Condition: stable 18:35 Discharge instructions given to patient, family, Instructed on discharge instructions, follow up and referral plans. Demonstrated understanding of instructions, follow-up care. 18:35 Patient left the ED. jl7 Signatures: Dispatcher [employer] THUYID Jacque Jiménez mr RicksRishi MD MD rn Leal, Jahala, RN RN jl7 Cullen Lucas RN RN jd3 Acob, Cheryl, RN RN ca1
[2020-08-23 19:21] VITALS: TEMP 98.1
[2020-08-23 19:23] VITALS: BP 124/72; O2SAT 100
== END 2020-08-23 18:35 | disposition home or self-care (01) ==
LOC: ER 15:45
DX: N83.209 Unspecified ovarian cyst, unspecified side (principal)
CPT/HCPCS: 85025; 80048; 36415; 81025; 82565; 80076; 83690; 74177; Q9967; J2550; J2175; J2405; 81003; 81015; 96374; 96375; 99284

== ENCOUNTER 2022-03-07 16:16 | Inpatient (IN) | payer OTHER ==
--- OUTSIDE RECORDS SUMMARY | 2022-03-07 16:18 | XMS REPORT | Continuity of Care Document ---
:1980 Author Organization [facility] t Address [address] [place] [address] Care Team Providers Name Role Phone Noel Mcintosh Attending Clinician Unavailable Noel Mcintosh Admitting Clinician Unavailable Payers Payer Name Policy Type Policy Number Effective Date Expiration Date S ource Problems This patient has no known problems. Allergies, Adverse Reactions, Alerts Allergy Allergy Status Severity Reaction(s) Onset Inactive Treating Comm ents Source Name Type Date Date Clinician HYDROCOD DA Active SV NAUSEA/VOMIT HC A ONE ING 02-14 [place] 00:00: d 00 [facility] No Known DA Active U [facility] Allergie 02-14 [place] s 00:00: d 00 [facility] morphine DA Active SV ANXIETY [facility] 02-14 [place] 00:00: d 00 [facility] tramadol DA Active U HEADACHE [facility] 02-14 [place] 00:00: d 00 [facility] Medications This patient has no known medications. Procedures This patient has no known procedures. Encounters Start End Encounter Admission Attending Care Care Encounter Source Date/Time Date/Time Type Type Clinicians Facility Department ID 2022-02-14 Inpatient EL Kadiyala, HCAPM DAYS [id number] [facility] 14:00:00 Syeda [id number] [facility] 2022-02-15 2022-02-15 Outpatient EL Hiralyala, HCAPM HCAPM [id number] [facility] 10:30:00 10:30:[facility] 2022-02-15 2022-02-15 Outpatient EL Kadiyala, HCAPM DAYS [id number] [facility] 10:30:00 10:30:00 Syeda [id number] [facility] Results Test Description Test Time Test Comments Results Result Comments Source SURGICAL 2022-02-19 18:11:00 Test Item Value Reference Range Interpretation Comme amaya SURGICAL RUN DATE: (test 02/19/22 H MAURI Valdez [place] - LAB PAGE 1 RUN TIME: 1810 code = Specimen Inquiry RUN USER: INTERFACE SR) PATIENT: KISHA MCKEON LOC: KEONAntoinette U #: [id number] AGE/SX: 41/ F ROOM: RE02/15/22[facility]: Syeda Mcintosh : 76 BED: DIS: STATUS: BABAK CHAWLA TLOC: SPEC #: [id number]:[id number] RECD: STATUS: HA VIEYRA #: [id number] TREMAINE: 02/15/22-[address] [facility] [address]: Syeda Mcintosh MD ENTERED: 02/16/22 TYPE: SURGICAL OT DR: ORDERED: [id number], ANATOMIC SPEC, SPECIMEN TRACK PROCEDURES: [id number] (02/19/22-160) SPECIMEN TRACK (02/16/22-632) TISSUES: A. UTERUS - UTERUS WITH CERVIX, B. FALLOPIAN TUBE NOS - BILATERAL FALLOPIAN TUBES FINAL DIAGNOSIS Uterus (148 g), fallopian tubes, hysterectomy and bilateral salpingectomy: - Cervix, minimal chronic cervicitis with few Nabothian cysts- Endometrium, proliferative pattern- Myome trium, adenomyosis, mild- Serosa, no morphological alteration Fallopian tubes with fimbriated ends:- Wall and lumen identified, bilaterally; vascular congestion at fimbriated ends Comment: Negative for a typia/malignancy. Suggest clinical correlation. GROSS DESCRIPTION Uterus with bilateral fallop britney tubes. Received is a uterus with a detached bilateralfallopian tubes. The uterus weighs 148 g. It measures cornu to cornu 7 cm posterioranterior 5.5 cm and from fundus to cervix 9.5 cm. The cervix m easures 3.6 x 3 cm with acervical os transverse diameter of 1.2 cm. It is bivalved to reveal a cervica l canal of a4.5 cm in length. Endometrial cavity measuring 3.5 x 2.2 cm. It is covered by aendometriu m of 0.2 cm in thickness. The serosal surface is smooth and glistening. Serialsectioning reveals no lesions. A1 posterior cervix A2 anterior cervix A3 posterior endomyometrium A4 anterior endomyometrium A 5 serosal surface. Also received in the same container are two segments of fallopian tubes with fimbria horacio endmeasuring 3.5 cm in length with a diameter of 0.8 cm. Sections of the first tube withentire bi sected fimbriated end as A6, the second segment of fallopian tube measures 2.5 cmin length with a diame ter of 0.7 cm sections of entire bisected fimbriated end and tubeas A7. CONTINUED ON NEXT PAGE * * RUN DATE: 02/19/22 H MAURI Valdez [facility] LAB PAGE 2 RUN TIME: 1810 Specimen Inquiry RUN USER: INTERFACE SPEC #: [id number]:[facility]:[id number] PATIENT: KISHA MCKEON #[id number] (Continued) GROSS DESCRIPTION (Continued) Technical component performed at [id number] , [place] [address] Unless gross only, the diagnosis is based upon microscopic examination.Immunohistochemi stry: This test was developed and its performancecharacteristics determined by this laboratory. It has n ot been approved nordoes it need approval by the [place] FDA. Appropriate positive and negative contro lsare reviewed and judged to be acceptable. This laboratory is certified underthe Clinical Laboratory Improvement Amendments (CLIA-88) as qualified toperform high complexity clinical laboratory testing. MICROSCOPIC DESCRIPTION Histopathological findings are incorporated into the diagnosis/comment sections. Signed SIGNATURE ON FILE Rohith Arreola 02/19/22 1811 END OF REPORT BASIC METABOLIC [id number] 15:54:00 Test Item Value Reference Range Interpretation Comments SODIUM (test code = NA) 141 mmol/L 134-147 N POTASSIUM (test code = 4.3 mmol/L 3.4-5.0 N K) CHLORIDE (test code = 105 mmol/L 100-108 N CL) CARBON DIOXIDE (test 27 mmol/L 21-32 N code = CO2) ANION GAP (test code = 9.0 GAP calc 4.0-15.0 N GAP) GLUCOSE (test code = 80 MG/DL 70-110 N GLU) BLOOD UREA NITROGEN 15 MG/DL 7-18 N (test code = BUN) GLOMERULAR FILTRATION >=60 max estimate >60 RATE (test code = GFR) estGFR CREATININE (test code = 0.7 MG/DL 0.6-1.0 N CREAT) CALCIUM (test code = CA) 9.4 MG/DL 8.5-10.1 N COVID 19 INHOUSE [id number] 15:51:00 Test Item Value Reference Range Interpretation Comments COVID 19 INHOUSE AG NEGATIVE Negative Per manu facturer, (test code = negative result s should [id number]) be treated aspr esumptive and, if inconsi stent with clinical signs andsymptoms or necessary for patient man agement, should betested with an alternative mol ecular assay. Negative resultsdo not preclude SA RS-CoV-2 infection and s hould not be usedas the s ole basis for patient man agement decisions. Neg ative results should be considered in t he context of apatient's r ecent exposures, hist ory, presence of cli nicalsigns and symptoms co nsistent with COVID-19. UR HCG [id number] 15:38:00 Test Item Value Reference Range Interpretation Comments UR HCG QUAL (test code = HCGQLU) NEGATIVE NEGATIVE URINALYSIS [id number] 15:38:00 Test Item Value Reference Range Interpretation Comments UA GLUCOSE DIPSTICK (test NEGATIVE mg/dL NEG code = DGLUU) UA BILIRUBIN DIPSTICK (test NEGATIVE mg/dL NEG code = BILU) UA KETONE DIPSTICK (test NEGATIVE mg/dL NEG code = KETU) UA SPECIFIC GRAVITY (test 1.015 SG 1.005-1.030 code = SGU) UA BLOOD DIPSTICK (test NEGATIVE mg/DL NEG code = MARIE) UA PH DIPSTICK (test code = 6.0 pH UNITS 5.0-7.0 SENAIT) UA PROTEIN DIPSTICK (test NEGATIVE mg/dL NEG code = PROU) UA UROBILINIOGEN DIPSTICK 0.2 mg/dL <2.0 (test code = URO) UA NITRITE DIPSTICK (test NEGATIVE SCREEN NEG code = JALIL) UA LEUKOCYTE ESTERASE NEGATIVE Leuk/mcL NEGATIVE DIPSTICK (test code = LEUU) Urine Specimen Type: Clean CatchCBC W/AUTO [id number] 15:30:00 Test Item Value Reference Range Interpretation Comments WHITE BLOOD CELL (test code = 8.3 K/mm3 3.5-11.0 N WBC) RED BLOOD CELL (test code = 4.16 M/mm3 4.70-6.10 L RBC) HEMOGLOBIN (test code = HGB) 12.5 G/DL 10.4-14.9 N HEMATOCRIT (test code = HCT) 37.2 % 31.5-44.1 N MEAN CELL VOLUME (test code = 89.4 Fl 84.5-98.6 N MCV) MEAN CELL HGB (test code = MCH) 30.0 pg 27.0-34.2 N MEAN CELL HGB CONCETRATION 33.6 G/DL 31.5-34.0 N (test code = MCHC) RED CELL DISTRIBUTION WIDTH 13.1 SD 11.5-14.5 N (test code = RDW) PLATELET COUNT (test code = 259 K/mm3 150-450 N PLT) MEAN PLATELET VOLUME (test code 9.90 fL 7.0-10.5 N = MPV) NEUTROPHIL % (test code = NT%) 59.3 % 40-76 N IMMATURE GRANULOCYTE % (test 0.1 % 0.0-5.0 N code = IG%) LYMPHOCYTE % (test code = LY%) 31.3 % 20.5-51.1 N MONOCYTE % (test code = MO%) 6.9 % 1.7-9.3 N EOSINOPHIL % (test code = EO%) 1.7 % 0.0-6.0 N BASOPHIL % (test code = BA%) 0.7 % 0.0-2.0 N NUCLEATED RBC % (test code = 0.0 /100WBC% 0.0-1.0 N NRBC%) NEUTROPHIL # (test code = NT#) 4.9 K/mm3 1.8-7.6 N IMMATURE GRANULOCYTE # (test 0.01 x10 3/uL 0.00-0.03 N code = IG#) LYMPHOCYTE # (test code = LY#) 2.6 K/mm3 0.6-3.2 N MONOCYTE # (test code = MO#) 0.6 K/mm3 0.3-1.1 N EOSINOPHIL # (test code = EO#) 0.1 K/mm3 0.0-0.4 N BASOPHIL # (test code = BA#) 0.1 K/mm3 0.0-0.1 N NUCLEATED RBC # (test code = 0.0 K/mm3 0.0-0.1 N NRBC#) MANUAL DIFF REQUIRED (test code NO DIFF/SCN CRITERIA = MDIFF) PROTHROMBIN [id number] 15:30:00 Test Item Value Reference Range Interpretation Comments PT PATIENT (test 11.2 SECONDS 9.3-12.9 N code = PTP) INTERNATIONAL NORMAL 0.98 INR Unit 0.8-1.2 N TARGET RATIO (test code = INR BY IN DICATION INR) Indication INR1. Prophyl axis of venous thrombos is 2.0 - 3. 0 (orthopedic mari ae dilan), Prophylaxis of venous thrombos is (other than hig h-risk surgery), Sally tment of Deep Vein Thrombosis/Pulm onary Embolism, Preve ntion of systemic emb olism - Tissue heart va lves, Acute Myocardia l Infarction (to prevent systemic embo lism), Valvular heart disease, Acut e Myocardial Infa rction (to prevent s ystemic embolism), Valv ular heart disease, Atrial Fibrilla tion, Bileaflet mecha nical valve in aortic position.2. Mec hanical prosthetic valv es (high risk), 2.5 - 3.5 Presence of Lupus Anticoagu lant or Antiphospholi pid Antibodies, Pre vention of systemic e mbolism - Acute Myocard ial Infarction (t o prevent recurre nt infarct). THROMBOPLASTIN TIME [id number] 15:30:00 Test Item Value Reference Range Interpretation Comments THROMBOPLASTIN TIME PARTIAL 32.4 SECONDS 26-35 N (test code = PTT)
[2022-03-07 17:14] LABS: Urine Blood 2+ (Negative); Urine Glucose Negative (Negative); Urine Protein Negative (Negative); Urine pH 6.5 (5.0-7.0)
[2022-03-07 17:37] LABS: Absolute Lymphocytes (CBC) 1.4 K/uL (0.7-4.9); Hematocrit 36.9 % (36.0-45.0); Lymphocytes % 7.5 % (15.3-44.8); MPV 7.9 fL (7.6-11.3); RBC Red Blood Cell Count 4.18 M/uL (3.86-4.86)
[2022-03-07] MEDS ORDERED: FENTANYL CITR 100 MCG/2 ML ONE ×3 (17:38→23:11)
[2022-03-07] MEDS ORDERED: NA CHLORIDE 0.9% 1,000 ML ONE ×2 (17:38→19:53)
[2022-03-07 17:39] LABS: Protime INR 1.18
[2022-03-07 17:53] LABS: Urine Bacteria <20 /HPF (<20); Urine RBC <5 /HPF (NONE SEEN)
[2022-03-07 17:55] LABS: Albumin 3.7 g/dL (3.4-5.0); Bilirubin Direct 0.2 mg/dL (0-0.2); Bilirubin Total 0.4 mg/dL (0.2-1.0); Magnesium 2.1 mg/dL (1.8-2.4); Potassium 3.9 mmol/L (3.5-5.1); Protein, Total 7.8 g/dL (6.4-8.2)
--- NOTE | 2022-03-07 18:44 | RAD REPORT ---
EXAM DESCRIPTION: RAD - Chest Single View - 03/07/2022 6:19 pm CLINICAL HISTORY: FEVER COMPARISON: Chest Pa And Lat (2 Views) dated 03/12/2016; CHEST SINGLE VIEW dated 06/01/2011; CHEST SING LE VIEW dated 10/19/2009; CHEST PA AND LAT 2 VIEW dated 03/08/2006 FINDINGS: Lines: None. Lungs: No evidence of edema or pneumonia. Pleural: No significant pleural effusions or pneumothorax. Cardiac: The heart size is within normal limits. Bones: No acute fractures. Other: IMPRESSION: No acute cardiopulmonary disease.
[2022-03-07 19:02] LABS: SARS-COV-2 RT PCR NEGATIVE (NEGATIVE)
--- NOTE | 2022-03-07 19:05 | RAD REPORT ---
EXAM DESCRIPTION: CTAbdomen Pelvis W Contrast - 03/07/2022 6:43 pm CLINICAL HISTORY: abdominal pain COMPARISON: Abdomen Pelvis W Contrast dated 08/23/2020; Abdomen Pelvis W Contrast dated 02/16/2016 TECHNIQUE: CT of the abdomen and pelvis was performed. All CT scans are performed using dose optimization technique as appropriate and may include automated exposure control or mA/KV adjustment according to patient size. FINDINGS: Lower chest: No acute abnormality. Liver: No acute abnormality or suspicious lesions. Biliary: No biliary ductal dilatation. Stomach: No significant focal abnormality. Duodenum: No significant focal abnormality. Pancreas: No significant abnormality. Spleen: No significant abnormality. Adrenal: No suspicious lesions. Kidney/ureter: No hydronephrosis. No renal calculi. Retroperitoneum: No retroperitoneal adenopathy. Vascular: No aneurysm. Bowel: Abnormal segmental small bowel in the pelvis. Some of the small bowel has severely thickened b owel wall. The loops of small bowel are angulated. No appendicitis. Peritoneum: Enhancing fluid is present within the pelvis. There is angulated small bowel within the l ower pelvis. Some of the small bowel has severely thickened bowel wall. There is associated mesenteri c edema. The mesentery has a twisted appearance at this location. Interloop fluid is present. Bladder: Grossly unremarkable. Reproductive: No adnexal masses. Hysterectomy Bones: No acute fracture. Other: n/a IMPRESSION: Segmental small bowel wall thickening with associated pronounced mesenteric edema, bowel angulation, and some twisting of the mesentery. The upstream small bowel is nondilated. The downstre am small bowel and colon is not decompressed as would be typical of a high-grade obstruction. Neverth eless, the appearance of this portion of small bowel raises concern for an early closed loop small aspen wel obstruction. Parietal peritoneal enhancement associated with small volume of pelvic fluid could r epresent peritonitis.
[2022-03-07] MEDS ORDERED: HYDROMORPHONE HCL 0.5 MG/0.5 ML INJ ONE (19:52)
[2022-03-07] MEDS ORDERED: PIPERACIL/TAZO 3.375 GM VIAL IV ONE (19:53)
[2022-03-07] MEDS ORDERED: NA CHLORIDE 0.9% 100 ML IV ONE (19:53)
--- NOTE | 2022-03-07 19:57 | ER ---
Nurse's Notes [facility] Name: Madonna Khan Age: 41 yrs Sex: Female : 1980 Arrival Date: 03/07/2022 Time: 16:19 Bed 18 Private MD: Diagnosis: Peritonitis, unspecified Presentation: 03/07 16:28 Chief complaint: Patient states: Started having abd pain 8 days ago. Fatigue, not ll1 feeling well since. Today started to have chills, fever, body aches. Sent in for eval by Arnaldo. Hysterectomy/pelvic floor reconstruction 3 weeks ago. Coronavirus screen: Vaccine status: Patient reports being unvaccinated. Client denies travel out of the [place] in the last 14 days. At this time, the client does not indicate any symptoms associated with coronavirus-19. Ebola Screen: Patient denies travel to an Ebola-affected area in the 21 days before illness onset. Initial Sepsis Screen: Does the patient meet any 2 criteria? HR > 90 bpm. No. Patient's initial sepsis screen is negative. Does the patient have a suspected source of infection? Yes: Acute abdominal pain. Risk Assessment: Do you want to hurt yourself or someone else? Patient reports no desire to harm self or others. Onset of symptoms was February 27, 2022. 16:28 Method Of Arrival: Ambulatory [facility] 16:28 Acuity: JOSUE 2 1 Triage Assessment: 16:31 General: Appears uncomfortable, Behavior is cooperative, appropriate for age. Pain: 1 Complains of pain in abdomen Quality of pain is described as aching, crampy. GI: Reports lower abdominal pain, upper abdominal pain, bloating. Historical: - Allergies: 16:30 Hydrocodone-Acetaminophen; ll1 16:30 Morphine; 1 - Home Meds: 18:50 Protonix Oral [Active]; 6 - PMHx: 16:30 GERD; 1 - PSHx: 16:30 hysteretomy; tubal ligation; ll1 - Immunization history:: Client reports having NOT received the Covid vaccine. Flu vaccine status is unknown. - Social history:: Smoking status: Patient denies any tobacco usage or history of. Screenin:00 Abuse screen: Denies threats or abuse. Denies injuries from another. jh6 17:00 Nutritional screening: No deficits noted. Tuberculosis screening: No symptoms or risk jh6 factors identified. Fall Risk IV access (20 points). Assessment: 17:00 General: Appears in no apparent distress. uncomfortable, well groomed. ll1 17:00 Pain:. ll1 17:00 Pain: Complains of pain in right lower quadrant and left lower quadrant Pain does not jh6 radiate. Pain currently is 8 out of 10 on a pain scale. Quality of pain is described as sharp, shooting, Pain began 2-3 days ago. Is intermittent, Alleviated by nothing. Aggravated by increased activity. 17:00 GI: Abdomen is round distended, Abd is soft Abdomen is tender to palpation in right jh6 lower quadrant and left lower quadrant. 18:50 Reassessment: Patient and/or family updated on plan of care and expected duration. Pain jh6 level reassessed. Patient is alert, oriented x 3, equal unlabored respirations, skin warm/dry/pink. Pain: Complains of pain in suprapubic area, right lower quadrant and left lower quadrant Pain currently is 5 out of 10 on a pain scale. 22:34 Reassessment: pt taken to surgery. EKG and consent given to or nurse. IV 20 g right AC kd3 flushes well with blood return . Vital Signs: 16:28 BP 117 / 73; Pulse 129; Resp 18; Temp 99.9; Pulse Ox 100% ; Weight 72.57 kg; Height 5 ll1 ft. 6 in. (167.64 cm); Pain 8/10; 18:49 BP 108 / 62; Pulse 100; Resp 18; Pain 4/10; jh6 16:28 Body Mass Index 25.82 (72.57 kg, 167.64 cm) ll1 ED Course: 16:19 Patient arrived in ED. ds1 16:30 Triage completed. ll1 16:31 Arm band placed on Patient placed in an exam room, on a stretcher. ll1 16:34 Mesfin Mohan PA is PHCP. cp 16:34 Akbar Sharp MD is Attending Physician. cp 16:47 Neto Hernandez RN is Primary Nurse. ll1 17:15 Inserted saline lock: 20 gauge in right antecubital area, using aseptic technique. jh6 Blood collected. 18:21 XRAY Chest (1 view) In Process Unspecified. EDMS 18:[address] ll1 18:44 Abdomen In Process Unspecified. EDMS 18:[address] Patient moved back [address]. jh6 19:56 Syeda Mcintosh MD is Hospitalizing Provider. cp Administered Medications: 17:39 Drug: NS 0.9% (30 ml/kg) 30 ml/kg Route: IV; Rate: bolus; Site: right upper arm; ll1 18:25 Follow up: Response: No adverse reaction ll1 17:39 Drug: fentaNYL (PF) 25 mcg Route: IVP; Site: right antecubital; ll1 18:25 Follow up: Response: Pain is decreased ll1 19:57 Drug: Zosyn (piperacillin-tazobactam) 3.375 grams Route: IVPB; Infused Over: 60 mins; kd3 Site: right antecubital; 19:57 Drug: NS 0.9% 1000 ml Route: IV; Rate: 125 ml/hr; Site: right antecubital; kd3 19:57 Drug: Dilaudid (HYDROmorphone) 0.5 mg Route: IVP; Site: right antecubital; kd3 Outcome: 19:57 Decision to Hospitalize by Provider. cp 03/08 00:07 Patient left the ED. kd3 Signatures: Dispatcher [employer] [facility] KyeSultana ds1 Mesfin Mohan PA PA cp Lewis, Lynsay RN RN ll1 Stephanie Lynch RN RN kd3 Jolie Strickland RN RN jh6
--- NOTE | 2022-03-07 19:58 | EDPHYS ---
Physician Documentation [facility] Name: Madonna Khan Age: 41 yrs Sex: Female : 1980 Arrival Date: 03/07/2022 Time: 16:19 Bed 18 Private MD: ED Physician Akbar Sharp HPI: 03/07 17:00 This 41 yrs old Female presents to ER via Ambulatory with complaints of Body Aches, cp Fever, Chills. 17:00 The patient presents with abdominal pain in the lower abdomen. cp 17:00 Onset: The symptoms/episode began/occurred 8 day(s) ago. The symptoms radiate to back. cp Associated signs and symptoms: Pertinent positives: fever, body aches, chills, Pertinent negatives: chest pain, constipation, diarrhea, dysuria, headache, vaginal discharge, vomiting. The symptoms are described as constant. Modifying factors: the symptoms are aggravated by movement, pressure. Historical: - Allergies: 16:30 Hydrocodone-Acetaminophen; ll1 16:30 Morphine; ll1 - Home Meds: 18:50 Protonix Oral [Active]; jh6 - PMHx: 16:30 GERD; ll1 - PSHx: 16:30 hysteretomy; tubal ligation; ll1 - Immunization history:: Client reports having NOT received the Covid vaccine. Flu vaccine status is unknown. - Social history:: Smoking status: Patient denies any tobacco usage or history of. ROS: 17:05 Constitutional: Positive for body aches, chills, Negative for fever, poor PO intake. cp 17:05 Eyes: Negative for injury, pain, redness, and discharge. cp 17:05 ENT: Negative for drainage from ear(s), ear pain, sore throat, difficulty swallowing, difficulty handling secretions. 17:05 Cardiovascular: Negative for chest pain, edema, palpitations. 17:05 Respiratory: Negative for cough, shortness of breath, wheezing. 17:05 Abdomen/GI: Positive for abdominal pain, Negative for vomiting, diarrhea, constipation. 17:05 Back: Positive for radiated pain. 17:05 : Negative for urinary symptoms, vaginal bleeding. 17:05 Neuro: Negative for altered mental status, dizziness, headache, numbness, syncope, weakness. 17:05 All other systems are negative. Exam: 17:10 Constitutional: The patient appears in no acute distress, alert, awake, cp non-diaphoretic, non-toxic, well developed, well nourished, in obvious pain, uncomfortable. 17:10 Head/Face: Normocephalic, atraumatic. cp 17:10 Eyes: Periorbital structures: appear normal, Conjunctiva: normal, no exudate, no injection, Sclera: no appreciated abnormality, Lids and lashes: appear normal, bilaterally. 17:10 ENT: External ear(s): are unremarkable, Nose: is normal, Mouth: Lips: moist, Oral mucosa: pink and intact, moist, Posterior pharynx: Airway: no evidence of obstruction, patent. 17:10 Neck: ROM/movement: is normal, is supple, without pain, no range of motions limitations, no meningismus. 17:10 Chest/axilla: Inspection: normal, Palpation: is normal, no crepitus, no tenderness. 17:10 Cardiovascular: Rate: tachycardic, Rhythm: regular, Edema: is not appreciated, JVD: is not appreciated. 17:10 Respiratory: the patient does not display signs of respiratory distress, Respirations: normal, no use of accessory muscles, no retractions, labored breathing, is not present, Breath sounds: are clear throughout, no decreased breath sounds, no stridor, no wheezing. 17:10 Abdomen/GI: Inspection: distension, that is mild, Bowel sounds: active, all quadrants, Palpation: soft, in all quadrants, moderate abdominal tenderness, in the right lower quadrant and left lower quadrant, rebound tenderness, is not appreciated, involuntary guarding, is not appreciated. 17:10 Back: pain, that is moderate, of the low back area and mid back area, ROM is painful, with all movement. 17:10 Skin: cellulitis, is not appreciated, no rash present. 17:10 Neuro: Orientation: to person, place \\T\\ time. Mentation: is normal, Motor: moves all fours, strength is normal, Sensation: is normal. Vital Signs: 16:28 BP 117 / 73; Pulse 129; Resp 18; Temp 99.9; Pulse Ox 100% ; Weight 72.57 kg; Height 5 ll1 ft. 6 in. (167.64 cm); Pain 8/10; 18:49 BP 108 / 62; Pulse 100; Resp 18; Pain 4/10; jh6 16:28 Body Mass Index 25.82 (72.57 kg, 167.64 cm) ll1 MDM: 16:34 Patient medically screened. cp 17:30 Differential diagnosis: bowel obstruction, diverticulitis, gastritis, non-specific abd cp pain, pancreatitis, Peritonitis, Pyelonephritis, Ureterolithiasis, urinary tract infection. 19:30 Data reviewed: vital signs, nurses notes, lab test result(s), radiologic studies, CT cp scan. 19:30 Counseling: I had a detailed discussion with the patient and/or guardian regarding: the cp historical points, exam findings, and any diagnostic results supporting the discharge/admit diagnosis, lab results, radiology results, the need for further work-up and treatment in the hospital, to return to the emergency department if symptoms worsen or persist or if there are any questions or concerns that arise at home. 19:30 Response to treatment: the patient's symptoms have markedly improved after treatment. cp Physician consultation: Syeda Mcintosh MD was called at 19:25, was contacted at 19:25, regarding admission, to the medical/surgical unit. patient's condition, and will see patient in ED, shortly. 03/07 16:54 Order name: Urine Microscopic Only; Complete Time: 18:01 03/07 17:06 Order name: Basic Metabolic Panel; Complete Time: 18:01 03/07 19:04 Interpretation: Normal except: GLUC 108; GFR 75. 03/07 17:06 Order name: CBC with Diff; Complete Time: 18:01 03/07 19:04 Interpretation: Normal except: WBC 19.4; DILCIA% 84.1; LYM% 7.5; NEUT A 16.3; MNA 1.5. 03/07 17:06 Order name: LFT's; Complete Time: 18:01 03/07 19:04 Interpretation: Normal except: AST 11; GLOB 4.1; A/G 0.9. 03/07 17:06 Order name: Magnesium; Complete Time: 18:01 03/07 17:06 Order name: PT-INR; Complete Time: 18:01 03/07 19:04 Interpretation: Abnormal: PT 13.0. 03/07 17:06 Order name: Lipase; Complete Time: 18:01 03/07 17:06 Order name: Procalcitonin; Complete Time: 19:03 03/07 17:06 Order name: Lactate; Complete Time: 18:01 03/07 17:06 Order name: Blood Culture Adult (2) 03/07 17:15 Order name: Urine Dipstick-Ancillary; Complete Time: 18:01 [facility] 03/07 19:05 Interpretation: Normal except: UBLD 2+; UESTR 1+. 03/07 17:46 Order name: COVID-19/FLU A+B (Document "Date of Onset" if Symptomatic); Complete Time: ss 19:03 03/07 21:36 Order name: Basic Metabolic Panel [facility] 03/07 21:36 Order name: Basic Metabolic Panel [facility] 03/07 17:06 Order name: XRAY Chest (1 view); Complete Time: 19:03 03/07 19:03 Interpretation: Report review. 03/07 17:06 Order name: EKG; Complete Time: 17:07 03/07 17:24 Order name: Abdomen ; Complete Time: 19:20 [facility] 03/07 20:42 Order name: INCENTIVE SPIROMETRY 03/07 21:36 Order name: NPO [facility] 03/07 21:36 Order name: CBC with Automated Diff [facility] 03/07 21:36 Order name: CBC with Automated Diff [facility] 03/07 21:36 Order name: Lipase [facility] 03/07 21:36 Order name: Lipase [facility] 03/07 21:36 Order name: Liver (Hepatic) Function [facility] 03/07 21:36 Order name: Liver (Hepatic) Function [facility] 03/07 16:54 Order name: Urine Dipstick-Ancillary (obtain specimen) 03/07 17:06 Order name: Cardiac monitoring; Complete Time: 21:23 03/07 17:06 Order name: EKG - Nurse/Tech; Complete Time: 21:23 03/07 17:06 Order name: IV Saline Lock; Complete Time: 21:23 03/07 17:06 Order name: Labs collected and sent; Complete Time: 21:23 03/07 17:06 Order name: O2 Per Protocol; Complete Time: 21:23 03/07 17:06 Order name: O2 Sat Monitoring; Complete Time: 21:23 cp Administered Medications: 17:39 Drug: NS 0.9% (30 ml/kg) 30 ml/kg Route: IV; Rate: bolus; Site: right upper arm; ll1 18:25 Follow up: Response: No adverse reaction ll1 17:39 Drug: fentaNYL (PF) 25 mcg Route: IVP; Site: right antecubital; ll1 18:25 Follow up: Response: Pain is decreased ll1 19:57 Drug: Zosyn (piperacillin-tazobactam) 3.375 grams Route: IVPB; Infused Over: 60 mins; kd3 Site: right antecubital; 19:57 Drug: NS 0.9% 1000 ml Route: IV; Rate: 125 ml/hr; Site: right antecubital; kd3 19:57 Drug: Dilaudid (HYDROmorphone) 0.5 mg Route: IVP; Site: right antecubital; kd3 Disposition Summary: 03/07/22 19:57 Hospitalization Ordered Hospitalization Status: Inpatient Admission cp Provider: Syeda Mcintosh cp [facility] cp Condition: Stable cp Problem: new cp Symptoms: have improved cp Bed/Room Type: Standard cp Room Assignment: cp Diagnosis - Peritonitis, unspecified cp Forms: - Medication Reconciliation Form cp - SBAR form cp Addendum: 03/11/2022 07:27 Co-signature as Attending Physician, Akbar Sharp MD I agree with the assessment and k dr plan of care. Signatures: Dispatcher [employer] EDMS Akbar Sharp MD MD [facility] Mickey Thibodeaux, [employer] SUPERVISOR-C [employer] SUPERVISOR-Cla1 Mesfin Mohan PA PA cp Neto Hernandez RN RN ll1 Stephanie Lynch RN RN kd3 Jolie Strickland RN RN jh6 Corrections: (The following items were deleted from the chart) 03/07 21:21 17:06 Dumont ordered. cp kd3
[2022-03-07] MEDS ORDERED: HYDROMORPHONE HCL 1 MG/ML INJ IV PRN (21:32)
[2022-03-07] MEDS ORDERED: SUCCINYLCHOLINE 20 MG/ML (10 ML) IV ONE (21:56)
[2022-03-07] MEDS ORDERED: ROCURONIUM 50 MG/5 ML VIAL IV ONE (22:00)
[2022-03-07] MEDS ORDERED: MIDAZOLAM HCL 2 MG/2 ML INJ ONE (22:00)
[2022-03-07] MEDS ORDERED: D5 0.45 NS 1,000 ML IV SCH (22:00)
[2022-03-07] MEDS ORDERED: propofoL 200 MG/20 ML VIAL IV ONE (22:00)
[2022-03-07] MEDS ORDERED: Ringers Lactate 1,000 ML IV ONE (22:12)
[2022-03-07] MEDS ORDERED: NEOSTIGMINE 1 MG/ML -5 ML ONE (23:48)
[2022-03-07] MEDS ORDERED: GLYCOPYRROLATE 0.2 MG/ML SYR ONE (23:48)
[2022-03-07] MEDS ORDERED: dexAMETHasone 10 MG/ML VIAL ONE (23:48)
[2022-03-07] MEDS ORDERED: ONDANSETRON 4 MG/2 ML VIAL ONE (23:49)
[2022-03-08] MEDS ORDERED: Mastisol Adhesive Liq ONE (00:03)
[2022-03-08] MEDS: HYDROMORPHONE HCL 1 MG/ML INJ ONE ×4 (00:25→00:59)
[2022-03-08] MEDS ORDERED: KETOROLAC 30 MG/ML INJ ONE (00:29)
[2022-03-08] MEDS ORDERED: HYDROMORPHONE HCL 1 MG/ML INJ IV PRN (00:43)
[2022-03-08] MEDS ORDERED: PROMETHAZINE INJ 25 MG/ML AMP IV PRN (00:44)
[2022-03-08 01:45] VITALS: BMI 25.8
[2022-03-08] MEDS ORDERED: PIPER TAZO 3.375 GM in NA CHLORIDE 0.9% 100 ML IV SCH ×3 (04:00)
[2022-03-08] MEDS: PIPER TAZO 3.375 GM in NA CHLORIDE 0.9% 100 ML IV SCH ×3 (04:18→20:05)
[2022-03-08 05:08] LABS: Absolute Lymphocytes (CBC) 0.6 K/uL (0.7-4.9); Hematocrit 35.4 % (36.0-45.0); MPV 7.8 fL (7.6-11.3); RBC Red Blood Cell Count 3.93 M/uL (3.86-4.86)
[2022-03-08 05:20] LABS: Albumin 3.1 g/dL (3.4-5.0); Bilirubin Direct 0.1 mg/dL (0-0.2); Bilirubin Total 0.4 mg/dL (0.2-1.0); Potassium 4.4 mmol/L (3.5-5.1)
[2022-03-08 05:39] LABS: Blood Morphology Comment NOT SEEN (NOT SEEN); Platelet Estimate ADEQ
[2022-03-08] MEDS: ONDANSETRON 4 MG/2 ML VIAL IV PRN ×3 (07:45→20:06)
[2022-03-08] MEDS: KETOROLAC 30 MG/ML INJ IV PRN ×2 (12:08→20:53)
[2022-03-08] MEDS: D5 0.45 NS 1,000 ML IV SCH (15:56)
[2022-03-08] MEDS ORDERED: ONDANSETRON 4 MG/2 ML VIAL IV PRN (18:54)
[2022-03-08] MEDS ORDERED: HOME MED 1 EA UNK (Omeprazole [Omeprazole] 20 MG Capsule.Dr) PO SCH (19:00)
--- NOTE | 2022-03-08 19:02 | P.PN ---
Subjective Date of Service: 03/08/22 Subjective: Ambulating, Improving (liquids clears only), Doing well N/V x1 today, thinks this was from toradol no fever chills pain control moderate, dialudid 1dose and one dose toradol for all day no flatus, voids well Review of Systems General: Unremarkable ENT: Nose Pain (since NG tube inserted and removed) Respiratory: Unremarkable Cardiovascular: Unremarkable Gastrointestinal: Nausea Genitourinary: Unremarkable Physical Examination - Vital Signs Temperature: 97.9 F Blood Pressure: 114/59 Pulse: 102 (staying in upper 90s to low 100s) Respirations: 18 Pulse Ox (%): 99 - Physical Exam General: Alert, Oriented x3, Cooperative HEENT: PERRLA Gastrointestinal: Hypoactive, Soft and benign, Distended, Tenderness - Studies WBC 19-->18.7, left shift went to 94, up from 87% BMP normal Microbiology Data (last 24 hrs): blood cultures neg 24h Medications List Reviewed: Yes Assessment And Plan - Current Problems (Diagnosis) (1) Pelvic and perineal pain Current Visit: Yes Status: Acute Plan: improving after infection treated with surgical drainage as well as iv abx toradol and dilaudid prn ambulate follow closely for improvement (2) Small bowel obstruction due to postoperative adhesions Current Visit: Yes Status: Acute Plan: relieved awaiting resumption of bowel function N/V x1 today advance diet gradually fulls as tolerated now zofran prior to toradol (3) Fever Current Visit: Yes Status: Acute Plan: no recurrence however still tachy with highWBC, done <5h psotop CBC in am cont IV abx zosyn 3.375f q8h hydrate well I/O s adeq zosyn until WBC back to normal then plan cirpo flag or augmentin x10d total (4) GERD (gastroesophageal reflux disease) Current Visit: Yes Status: Acute Plan: restart home meds (5) Allergies Current Visit: Yes Status: Acute Plan: restart hoem meds nose pain from NGT observe, no intervention now - Plan d/w Dr Ramírez, rec to advance diet and cont abx Plan to discharge in: 72 Hours - Code Status/Comfort Care Code Status Assessed: Yes Code Status: Full Code
[2022-03-08] MEDS: MAGNESIUM OXIDE 400 MG TAB PO SCH (20:05)
[2022-03-08 20:47] VITALS: O2SAT 100
[2022-03-08] MEDS ORDERED: HOME MED 1 EA UNK (Magnesium Oxide [Magnesium] 400 MG Tablet) PO SCH (21:00)
--- NOTE | 2022-03-09 00:28 | OP ---
Date of Procedure: 03/07/2022 Surgeon: Syeda Mcintosh MD Preoperative Diagnoses: 1.Abdominal pain, pelvic pain. 2.Closed-loop small bowel obstruction. 3.Fever, leukocytosis. Postoperative Diagnoses: 1.Abdominal pain, pelvic pain. 2.Closed-loop small bowel obstruction. 3.Fever, leukocytosis. 4.Omental adhesions and small bowel loop obstruction and adhesions of the appendix. Procedures Performed: 1.Diagnostic laparoscopy. 2.Open laparotomy, lysis of omental small bowel and appendiceal adhesions assisted with resection of the omentum and appendectomy. Dr. Ramírez was the surgeon for these procedures. Please refer to his surgical note. Anesthesia: General endotracheal. Specimens: Omentum and appendix. Complications: No complications. Drains: Dumont catheter. Condition: Stable. Findings: On diagnostic laparoscopy, pelvic cavity had evident adhesions of the omentum to the vagin al cuff closure area. Then, there was a small bowel loop that was densely adhered to the right half of the vaginal cuff and the right lateral sidewall. The appendix was adhered on top of the small bow el loop, between the loop and the vaginal cuff. The mesentery of the small bowel loop that was obstr ucted in the pelvis was edematous. No evidence of any bowel ischemia, necrosis, perforation, or absc ess. The fluid after separation of the bowel from omentum, epiploicae and appendix, appeared to be c lear. No other purulent areas. The ovariopexy site on the left was visualized and was unremarkable. Vaginal cuff was intact. The uterosacral colpopexy was also intact. No evidence of any infection here. Indications: The patient is a 41-year-old female who presented 3 weeks postop with progressive incre ase in abdominal pain since 3 days. She called the office with not feeling well and slight vaginal b leeding. She was given instructions for rest on Saturday. Then, on Saturday when she called back, s he had a fever of 102, not feeling well. Prior to all this, she was feeling well and progressively g etting better. No nausea, vomiting, or diarrhea. Passing flatus and had been tolerating a diet. No lower urinary tract symptoms. She was sent to the ER and her CAT scan was reviewed. There was susp icion for a small bowel loop obstruction and given the fact that there is a vaginal cuff close to whi there is obstruction that was suspected to be located and risk of infection, which was consistent with her white count and her fever, was suspected so she was started on IV antibiotics, IV hydration, and then taken to the OR for evaluation of situation and treatment as necessary including bowel rese ction and other procedures as indicated and drainage of any abscess if found. Description Of Procedure: Informed consent was verified, all the situations [facility] and the patient and questions and answers were answered to their satisfaction. Then she was co nsented and taken to the OR. Preoperative consultation was obtained with Dr. Ramírez and evaluation wa s done and assessment of the CT scan was done as well. We placed the patient on the operating table in the supine fashion. Zosyn was given 2 hours prior to this, so no further antibiotics were given. The abdomen was prepped and draped in a sterile fashion . Dumont was placed to drain the bladder and the patient was placed in a supine fashion on the operat ing table. After general anesthesia was given, she was draped and then the supraumbilical incision f or the prior robotic surgery was opened up after injecting with dilute Marcaine. After the fascia wa s opened and Tari was introduced, adequate insufflation was obtained and the camera placed to check the site of entry and was unremarkable. The patient was placed in Trendelenburg. The two 8 ports w ere opened up and two 5 ports were placed through these incisions. Then, a 5 left lower quadrant inc ision was made for another trocar. After good visualization, we found that it was difficult to separ ate the adhesions from the lower part of the posterior aspect of the vaginal cuff. So we went ahead and decided to place lower midline incision and once this was done, then through the fascia, the lokesh toneum was opened sharply and then the bowel was examined. The omentum was pulled out from and separ ated gently from the top of the vaginal cuff on the left side. Then the epiploicae of the sigmoid co ahsan that were adhered also were gently . Then, after placing hand in the posterior cul-de-s ac gently between my 2 hands, I was able to separate the small bowel from the top of the vaginal cuff . Once this was done, the bowel was brought out then proximally bowel was run and there was no evide nce of any perforation or other obstruction. Then at the level of the loop, the loop was adhered to each other including the mesentery and the mesenteric borders appeared to have torsed. Once this was gently, there was no evidence of any obstruction and no perforation, just fib rinous exudate adhering the loops of bowel together. So once these were , we went ahead and thoroughly irrigated and suctioned the pelvic cavity. The appendix was also . The appendi x was then taken down, please refer to the op note. Once this was done, we went on to irrigate the e ntire pelvic cavity thoroughly with at least 1 L of saline. Once this was done, the omentum was take n down with the help of the LigaSure in the areas that it was adhered, to freshen this up then the om entum was tucked on top of the vaginal cuff and the bowel was tucked up above it. Then once all this was done and there was excellent exposure and evaluation of all the necessary organs, we decided to close. We also inspected the bowel all the way to the ileocecal junction and appeared to be completely unrem arkable. We closed the peritoneum with 3-0 chromic. Fascia was closed with the help of 0 PDS. Subcutaneous w as closed with 3-0 chromic in 2 layers and skin closed with the help of missy. Irrigation was perf ormed at each layer and suctioned. All the other incisions were closed with the help of 3-0 chromic. Skin and fascia at the supraumbilical scar was closed with the help of tagged 0 Vicryl sutures tied to each other. A Dumont was left in place. Instrument, needle, and sponge counts were correct. 0.2 5% Marcaine was injected at all skin sites. She has been admitted to the hospital and we will continue to follow her. JL/ANDRES Voice ID: [id number] Report ID: [id number]
[2022-03-09] MEDS: PIPER TAZO 3.375 GM in NA CHLORIDE 0.9% 100 ML IV SCH ×3 (04:00→20:04)
[2022-03-09] MEDS: ONDANSETRON 4 MG/2 ML VIAL IV PRN (04:10)
[2022-03-09] MEDS: KETOROLAC 30 MG/ML INJ IV PRN ×2 (06:15→15:01)
[2022-03-09 06:20] LABS: Absolute Lymphocytes (CBC) 1.3 K/uL (0.7-4.9); Hematocrit 30.8 % (36.0-45.0); Lymphocytes % 9.9 % (15.3-44.8); MPV 7.7 fL (7.6-11.3); RBC Red Blood Cell Count 3.43 M/uL (3.86-4.86)
[2022-03-09] MEDS ORDERED: PANTOPRAZOLE 40MG TABLET PO SCH (07:30)
--- NOTE | 2022-03-09 08:56 | P.OP ---
Date of Service: 03/07/22 Preop diagnosis: Status post robotic surgery for hysterectomy, small bowel obstruction and peritonitis Postop diagnosis: Same with extensive adhesions Procedure performed: Lysis of adhesions, appendectomy, partial omentectomy Surgeon: Reno Ramírez MD, Syeda Mcintosh MD [employer] Worker Helper: Estimated blood loss: Minimal Specimen: Omentum, appendix Findings: As above Anesthesia: General Complications: None Drains: None Fluids and blood products: Nonapplicable Disposition: Recovery room Brief history: Patient is a 41-year-old female who underwent robotic hysterectomy 3 weeks ago. Patient presented to the emergency room with abdominal pain, leukocytosis and peritoneal signs. CT of the abdomen and pelvis was reviewed by Dr. Mcintosh and the radiologist. Findings were consistent with closed-loop obstruction in the pelvis. Informed consent was obtained by Dr. Mcintosh. Patient understood risk benefits alternatives and agreed to procedure. I was consulted for intraoperative assistance and evaluation. Operative note: Patient brought to the OR and placed in the supine position. General anesthesia begun and patient prepped and draped in the usual sterile fashion. Marcaine 0.5% infiltrated locally. After diagnostic laparoscopy was performed by Dr. Mcintosh, the findings were significant for adhesions in the pelvis involving omentum and the appendix. There was a closed-loop obstruction of the distal ileum. At this point decision was made to convert to an open procedure. Lower midline incision was made and peritoneal cavity was entered. The appendix was freed from the scar tissue. Mesoappendix was divided with the LigaSure. Endo SIMBA stapling device was used to divide the base of the appendix on the cecum. There was also omental adhesions involving loops of small bowel in the pelvis. There was inflamed omentum which was excised via LigaSure and sent to pathology as specimen. The small bowel was freed from the adhesions and the twist was straightened. The small bowel had good mobility with no evidence of obstruction present. There was induration in the mesoappendix secondary to inflammation. Patient did not require resection of this portion of the small bowel as it was healthy and functioning well. Entire area was irrigated. There is no evidence of bleeding or bowel injury appreciated. #1 PDS was used to close the fascia after 0 chromic was used to close the peritoneum. The remainder of the incision was closed by Dr. Mcintosh. Sterile dressing applied. Patient awakened and taken to recovery room in good general condition. CC: Dr. Mcintosh's office
--- NOTE | 2022-03-09 08:59 | P.PN ---
Date of Service: 03/09/22 Subjective: Patient is awake and alert. Patient is passing flatus. Patient is tolerating clear liquids. Pain is controlled well. Objective: Vital signs stable and afebrile WBC 13.5 Abdomen: Soft, nondistended, nontender and positive bowel sounds Assessment: Status post exploratory laparotomy, appendectomy, partial omentectomy and lysis of adhesions Plan: Advance diet as tolerated. Encourage ambulation and incentive spirometry. If diet is tolerated this afternoon, patient can be discharged home on oral antibioticseither Cipro and Flagyl or Augmentin. Plan of care discussed with Dr. Mcintosh and the patient. CC:
[2022-03-09] MEDS: MAGNESIUM OXIDE 400 MG TAB PO SCH ×2 (09:29→20:55)
[2022-03-09] MEDS: D5 0.45 NS 1,000 ML IV SCH (14:16)
--- NOTE | 2022-03-09 19:03 | P.PN ---
Subjective Date of Service: 03/09/22 Chief Complaint: postop pain better Subjective: No new changes, Tolerating diet, Ambulating, Improving (passing flatus, voiding well, pain well controlled), Doing well N/V x1 today, thinks this was from toradol no fever chills pain control moderate, dialudid 1dose and one dose toradol for all day no flatus, voids well Review of Systems Unremarkable Physical Examination - Vital Signs Temperature: 98.7 F Blood Pressure: 109/58 Pulse: 105 Respirations: 18 Pulse Ox (%): 99 - Physical Exam General: In no apparent distress Gastrointestinal: Non-distended, Tenderness (at incision, inc CDI, dsg removed ) Musculoskeletal: No swelling - Studies Medications List Reviewed: Yes Assessment And Plan - Current Problems (Diagnosis) (1) Pelvic and perineal pain Current Visit: Yes Status: Acute Plan: improving after infection treated with surgical drainage as well as iv abx toradol and dilaudid prn ambulate follow closely for improvement (2) Small bowel obstruction due to postoperative adhesions Current Visit: Yes Status: Acute Plan: relieved awaiting resumption of bowel function N/V x1 today advance diet gradually fulls as tolerated now zofran prior to toradol (3) Fever Current Visit: Yes Status: Acute Plan: no recurrence however still tachy with highWBC, done <5h psotop CBC in am cont IV abx zosyn 3.375f q8h hydrate well I/O s adeq zosyn until WBC back to normal then plan cirpo flag or augmentin x10d total (4) GERD (gastroesophageal reflux disease) Current Visit: Yes Status: Acute Plan: restart home meds (5) Allergies Current Visit: Yes Status: Acute Plan: restart hoem meds nose pain from NGT observe, no intervention now - Plan d/w Dr Ramírez, rec to advance diet and cont abx Plan to discharge in: 24 Hours
[2022-03-09] MEDS ORDERED: IBUPROFEN 600 MG TAB PO PRN (19:04)
[2022-03-09] MEDS ORDERED: DIPHENHYDRAMINE 25 MG TAB/CAP PO PRN (21:01)
--- NOTE | 2022-03-10 02:16 | HP ---
Date of Admission: 03/07/2022 Admitting Diagnoses: 1. Abdominal pain. 2. Potential small bowel obstruction. 3. Leukocytosis/fever. History Of Present Illness: The patient is a 41-year-old, 3 weeks' postop from total laparoscopic hysterectomy, bilateral salpingectomy, uterosacral ligament suspension, colpopexy, lysis of omental adhesion, sullivan cystoscopy, posterior repair, perineorrhaphy, and left ovariopexy. This was done at [facility]. Called in, complaining of some abdominal discomfort starting 3 days ago. Fever to 102 today. No nausea, vomiting. Having bowel movements. Tolerating diet. Minimal vaginal bleeding. Has been resting since yesterday when she called, and she was given these instructions. Denies any urinary or other bowel issues. Slight bloating that has been persistent since discharge from the procedure 3 weeks ago. No other issues. At the time that I saw the patient in the ER, she had moderate abdominal pain, lying very still. Had no shortness of breath, chest pain, headaches, or dizziness. Complaining of fatigue. All other review of systems negative. Past Medical History: GERD. Allergies: narcotics Current Medications: Omeprazole, Ivette, Flonase. Past Surgical History: Tubal ligation, followed by the gynecologic procedures as dictated above on 02/15/2022. Social History: No tobacco, alcohol, or drug use. Physical Examination: Vital Signs: On checking her vital signs, she had a fever of 102 at home. Current temperature afebrile. She was receiving hydration and some pain medication as well as Zosyn 3.375 intravenously before I saw her. No diaphoresis, slightly anemic. Head and Neck: Normal. Chest: Clear. Heart: Regular rate and rhythm. Abdomen: Softly distended, tender, mild rebound in the lower pelvic cavity. Incisions clean, dry, intact. No drainage. Healing well. Extremities: No edema or calf tenderness. Pelvic: Did not do a pelvic exam as the patient was in pain. Laboratory Data: WBC 19.4 with 84% neutrophil count in the left shift. PT/INR mostly normal. Amylase, lipase, and LFTs are all mostly normal. Urine with small amount of blood and leukocyte esterase that are really mostly unremarkable. SARS-CoV-2 negative and flu negative. The chest x-ray and CT scan images were reviewed as well as the report, chest was unremarkable. Had no ureter or renal tissues. There was segmental small bowel wall thickening with associated pronounced mesenteric edema and bowel angulation, and some twisting of the mesentery. The upstream bowel was nondilated. Downstream bowel and colon were not decompressed. This is atypical of a high-grade obstruction but the appearance of this portion of the small bowel as there is concern for an early closed loop bowel obstruction. Peritoneal enhancement associated with small volume of pelvic fluid could represent peritonitis. I reviewed the images and there is definitely peritoneal fluid collection with bowel obstruction right above the level of the vaginal cuff, slightly towards the right. No other apparent abnormalities were seen. No evidence of a clear abscess in the pelvis. Assessment And Plan: 1. Abdominal pain, most likely from the bowel obstruction. IV pain medications given. 2. 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 Very important that the small bowel loop appears to be in the pelvic area right above the level of the vaginal cuff closure, and it could be suspicious for bowel obstruction from attachment to either some sutures or possibly some pathology here that loculated pocket of fluid, so plan is to perform a diagnostic laparoscopy and release the small bowel obstruction, possible resection. The patient was consented for all these. Very rare that this large bowel and needs a colostomy. If there is an abscess that it would be drained and the drain would be placed. The patient consented for this, was at her side, and clearly understood the complications potentially could bleed from this surgery as well as the complications traditionally from the surgery as well. 3. Leukocytosis and possible ileitis and peritonitis. Zosyn IV 3.375 g q.6 hours. Then, pain medication, hydration. N.p.o. right now. Repeat WBC and BMP in the morning. The patient was consented for transfusion as well, although there was no need for that at this time. 4. Dr. Ramírez was consulted and Dr. Sharp in the ER was notified that the patient is being seen, and house nurse called today from [facility]. JL/ANDRES Voice ID: [id number] MTDD
[2022-03-10] MEDS: PIPER TAZO 3.375 GM in NA CHLORIDE 0.9% 100 ML IV SCH (04:16)
[2022-03-10 05:51] LABS: Absolute Lymphocytes (CBC) 1.7 K/uL (0.7-4.9); Hematocrit 29.6 % (36.0-45.0); Lymphocytes % 18.8 % (15.3-44.8); MPV 7.6 fL (7.6-11.3); RBC Red Blood Cell Count 3.27 M/uL (3.86-4.86)
[2022-03-10] MEDS: MAGNESIUM OXIDE 400 MG TAB PO SCH (08:38)
[2022-03-10 10:23] VITALS: BP 102/66; TEMP 97.5
== END 2022-03-10 11:10 | disposition home or self-care (01) | DRG 335 ==
LOC: ER 16:16 → ERHOLD 21:31 → 2ND-WC 03-08 00:06
PROVIDERS: ADMIT Obstetrics & Gynecology; ATTEND Obstetrics & Gynecology
PROC: 0DTU0ZZ Resection of Omentum, Open Approach (ICD-10-PCS; principal; 2022-03-09)
PROC: 0DNJ0ZZ Release Appendix, Open Approach (ICD-10-PCS; 2022-03-09)
PROC: 0DN80ZZ Release Small Intestine, Open Approach (ICD-10-PCS; 2022-03-09)
PROC: 0DTJ0ZZ Resection of Appendix, Open Approach (ICD-10-PCS; 2022-03-09)
DX: K56.50 Intestinal adhesions [bands], unspecified as to partial versus complete obstruction (principal); K65.9 Peritonitis, unspecified; K21.9 Gastro-esophageal reflux disease without esophagitis; T78.40XA Allergy, unspecified, initial encounter; Z53.31 Laparoscopic surgical procedure converted to open procedure; Z20.822 Contact with and (suspected) exposure to COVID-19
CPT/HCPCS: 0240U; 36415; 71045; 74177; 80048; 80076; 81003; 81015; 83605; 83690; 83735; 84145; 85025; 85610; 87040; 88304; 93005; 94010; 99284; J0330; J1100; J1170; J2250; J2405; J2543; J2550; J2704; J2710; J3010; J7030; J7120; J7799; Q9967

== ENCOUNTER 2022-10-26 08:34 | Emergency (ER) | payer OTHER ==
--- OUTSIDE RECORDS SUMMARY | 2022-10-26 08:38 | XMS REPORT | Continuity of Care Document ---
:1980 Author Organization [facility] t Address [address] [place] [address] Care Team Providers Name Role Phone Syeda Mcintosh Attending Clinician Unavailable Syeda Mcintosh Admitting Clinician Unavailable Payers Payer Name Policy Type Policy Number Effective Date Expiration Date S ource Problems This patient has no known problems. Allergies, Adverse Reactions, Alerts Allergy Allergy Status Severity Reaction(s) Onset Inactive Treating Comm ents Source Name Type Date Date Clinician No Known DA Active U [facility] All[facility]ie 02-14 [place] s 00:00: d 00 [facility] morphine DA Active SV ANXIETY [facility] 02-14 [place] 00:00: d 00 [facility] tramadol DA Active U HEADACHE [facility] 02-14 [place] 00:00: d 00 [facility] HYDROCOD DA Active SV NAUSEA/VOMIT HC A ONE ING 02-14 [place] 00:00: d 00 [facility] Medications This patient has no known medications. Procedures This patient has no known procedures. Encounters Start End Encounter Admission Attending Care Care Encounter Source Date/Time Date/Time Type Type Clinicians Facility Department ID 2022-02-15 2022-02-15 Inpatient HARSH Mcintosh SINDYPM DAYS [id number] [facility] 10:30:00 10:30:00 Syeda angel [facility] Results Test Description Test Time Test Comments Results Result Comments Source SURGICAL 2022-02-19 18:11:00 Test Item Value Reference Range Interpretation Comme nts SURGICAL RUN (test DATE: 02/19/22 SINDY basilio - LAB PAGE 1 RUN TIME: 1810 Specimen Inquiry RUN USER: code = INTERFACE SR) PATIE NT: KISHA MCKEON ACCT #: [id number] LOC: OTONIEL U #: [id number] AGE/SX: 41/F ROOM: RE02/15/22REG DR: Christofer Mcintosh : 76 BED: DIS: STATUS: BABAK TELLO TLOC: SPEC #: [id number] RECD: STATUS: HA VIEYRA #: [id number] TREMAINE: 02/15/22- [address]: Syeda Mcintosh MD ENTERED: 02/16/22-632 SP TYPE: SURGICAL OTHR DR: ORDERED: [id number], ANATOMIC SPEC, SPECIMEN TRAC K PROCEDURES: [id number] (02/19/22-7279) SPECIMEN TRACK (02/16/22-632) TISSUES: A. UTERUS - UTERUS WITH CERVIX, B. FALLOPIAN TUBE NOS - BILATERAL FALLOPIAN TUBES FINAL DIAGNOSIS Uterus (148 g), fa llopian tubes, hysterectomy and bilateral salpingectomy: - Cervix, minimal chronic cervicitis w ith few Nabothian cysts- Endometrium, proliferative pattern- Myometrium, adenomyosis, mil d- Serosa, no morphological alteration Fallopian tubes with fimbriated ends:- Wall and l umen identified, bilaterally; vascular congestion at fimbriated ends Comment: Negative for atypia /malignancy. Suggest clinical correlation. GROSS DESCRIPTION Uterus with bilateral fallopian tub es. Received is a uterus with a detached bilateralfallopian tubes. The uterus weighs 148 g. It measures cornu to cornu 7 cm posterioranterior 5.5 cm and from fundus to cervix 9.5 cm. The cervix measures 3.6 x 3 cm with acervical os transverse diameter of 1.2 cm. It is bivalved to reveal a c ervical canal of a4.5 cm in length. Endometrial cavity measuring 3.5 x 2.2 cm. It is covered by a endometrium of 0.2 cm in thickness. The serosal surface is smooth and glistening. Serialsectioning reveals no lesions. A1 posterior cervix A2 anterior cervix A3 posterior endomyometrium A4 anterior endomyometrium A5 serosal surface. Also received in the same container are two segments o f fallopian tubes with fimbriated endmeasuring 3.5 cm in length with a diameter of 0.8 cm. Sectio ns of the first tube withentire bisected fimbriated end as A6, the second segment of fallopian tube measures 2.5 cmin length with a diameter of 0.7 cm sections of entire bisected fimbriated end and tubeas A7. ROSAURA GONZÁLES ON NEXT PAGE RUN DATE: 02/19/22 [facility] José Miguel basilio - LAB PAGE 2 RUN TIME: 1810 Specimen Inquiry RUN USER: INTERFACE SPEC #: [id number]:[id number] PATIENT: KISHA MCKEON #[id number] (Continued) ------ GROSS DESCRIPTION (Co ntinued) Technical component performed at [employer],[id number] , [place] [address] Unless gross only, the diagnosis is based upon microscopic examination.Immunohistochemi stry: This test was developed and its performancecharacteristics determined by this laborator y. It has not been approved nordoes it need approval by the [place] FDA. Appropriate positive and neg ative controlsare reviewed and judged to be acceptable. This laboratory is certified unde [facility] Clinical Laboratory Improvement Amendments (CLIA-88) as qualified toperform [facility] clinical laboratory testing. MICROSCOPIC DESCRIPTION Histopathological findings are incorporated into the d iagnosis/comment sections. ---- Signed SIGNATURE ON FILE Rohith Arreola 10/02 1811 END OF REPORT BASIC METABOLIC [id number] 15:54:00 Test Item Value Reference Range Interpretation [...] 9.4 MG/DL 8.5-10.1 N COVID 19 INHOUSE [id number] 15:51:00 Test Item Value Reference Range Interpretation Comments COVID 19 INHOUSE AG NEGATIVE Negative Per manu facturer, (test code = negative result s should [id number]) be treated aspr esumptive and, if inconsi stent with clinical signs andsymptoms or necessary for patient man agement, should betested with an alternative mol ecular assay. Negative resultsdo not preclude SA RS-CoV-2 infection and s hould not be usedas the s ole basis for patient man agement decisions. Nega tive results should be considered in t he context of apatient's r ecent exposures, hist ory, presence of cli nicalsigns and symptoms co nsistent with COVID-19. UR HCG [id number] 15:38:00 Test Item Value Reference Range Interpretation Comments UR HCG QUAL (test code = HCGQLU) NEGATIVE NEGATIVE URINALYSIS [id number] 15:38:00 Test Item Value Reference Range Interpretation [...] LEUU) Urine Specimen Type: Clean CatchCBC W/AUTO [id number] 15:30:00 Test Item Value Reference Range Interpretation [...] code NO DIFF/SCN CRITERIA = MDIFF) PROTHROMBIN [id number] 15:30:00 Test Item Value Reference Range Interpretation Comments PT PATIENT (test 11.2 SECONDS 9.3-12.9 N code = PTP) INTERNATIONAL NORMAL 0.98 INR Unit 0.8-1.2 N TARGE T INR BY RATIO (test code = INDICATIO N Indication INR) INR1. Prophylax is of venous thrombos is 2.0 - 3.0 (orthoped ic surgery), Proph ylaxis of venous throm bosis (other than hig h-risk surgery), Treat ment of Deep Vein Thrombosis/Pulm onary Embolism, Preve ntion of systemic emb olism - Tissue heart va lves, Acute Myocardia l Infarction (to prevent systemic emboli sm), Valvular heart disease, Acute Myocardial Infa rction (to prevent sys temic embolism), Valv ular heart disease, Atrial Fibrillation, Bileaflet mecha nical valve in aortic position.2. Mec hanical prosthetic valv es (high risk), 2. 5 - 3.5 Presence of Lup us Anticoagulant o r Antiphospholipi d Antibodies, Pre vention of systemic emb olism - Acute Myocardia l Infarction (to prevent recurrent infar ct). THROMBOPLASTIN TIME [id number] 15:30:00 Test Item Value Reference Range Interpretation Comments THROMBOPLASTIN TIME PARTIAL 32.4 SECONDS 26-35 N (test code = PTT)
[2022-10-26 09:03] LABS: Urine Blood Negative (Negative); Urine Glucose Negative (Negative); Urine Protein Negative (Negative); Urine pH 5.5 (5.0-7.0)
[2022-10-26] MEDS ORDERED: NA CHLORIDE 0.9% 1,000 ML ONE (09:25)
[2022-10-26] MEDS ORDERED: ONDANSETRON 4 MG/2 ML VIAL ONE (09:25)
[2022-10-26] MEDS ORDERED: FENTANYL CITR 100 MCG/2 ML ONE (09:25)
[2022-10-26 09:26] LABS: Absolute Lymphocytes (CBC) 1.5 K/uL (0.7-4.9); Hematocrit 39.4 % (36.0-45.0); MCV 87.3 fL (80-100); MPV 7.5 fL (7.6-11.3); RBC Red Blood Cell Count 4.51 M/uL (3.86-4.86)
[2022-10-26 09:54] LABS: Albumin 3.8 g/dL (3.4-5.0); Bilirubin Total 0.5 mg/dL (0.2-1.0); Protein, Total 8.4 g/dL (6.4-8.2)
--- NOTE | 2022-10-26 10:05 | RAD REPORT ---
EXAM DESCRIPTION: CT - Abdomen Pelvis W Contrast - 10/26/2022 9:55 am CLINICAL HISTORY: Abdominal pain left lower quadrant pain COMPARISON: March 2022 TECHNIQUE: Computed axial tomography of the abdomen pelvis was obtained. 100 cc Isovue-300 was admin istered intravenously. Oral contrast was not requested which limits evaluation of bowel and appendix All CT scans are performed using dose optimization technique as appropriate and may include automated exposure control or mA/KV adjustment according to patient size. FINDINGS: Mild hepatomegaly Spleen, pancreas, adrenal and kidneys appear unremarkable. Diverticula stem from the colon. Mild to moderate stranding adjacent to the descending colon. No free air. No abscess. 2 centimeter irregularly-shaped right ovarian cyst with a small amount of free fluid. Small umbilical hernia IMPRESSION: Mild to moderate descending colon diverticulitis
--- NOTE | 2022-10-26 10:26 | ER ---
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 Coronavirus screen: Vaccine status: Patient reports being unvaccinated. At this time, the client does not indicate any symptoms associated with coronavirus-19. Ebola Screen: No symptoms or risks identified at this time. Initial Sepsis Screen: Does the patient meet any 2 criteria? No. Patient's initial sepsis screen is negative. Does the patient have a suspected source of infection? No. Patient's initial sepsis screen is negative. Risk Assessment: Do you want to hurt yourself or someone else? Patient reports no desire to harm self or others. Onset of symptoms was October 25, 2022. 08:44 Method Of Arrival: Ambulatory jl7 08:44 Acuity: JOSUE 3 jl7 Triage Assessment: 08:47 General: Appears in no apparent distress. uncomfortable, Behavior is calm, cooperative, jl7 appropriate for age. Pain: Complains of pain in left lower quadrant Pain radiates to right lower quadrant Pain currently is 9 out of 10 on a pain scale. Quality of pain is described as aching, sharp, Pain began gradually, Is continuous. GI: Patient currently denies constipation, diarrhea, nausea, vomiting. 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 - Social history:: Smoking status: Patient denies any tobacco usage or history of. Vital Signs: 08:44 BP 108 / 72; Pulse 115; Resp 17; Temp 98.9; Pulse Ox 100% ; Weight 81.19 kg; Height 5 jl7 ft. 6 in. (167.64 cm); Pain 9/10; 10:59 BP 111 / 57; Pulse 109; Resp 15; Pulse Ox 100% ; jl7 08:44 Body Mass Index 28.89 (81.19 kg, 167.64 cm) jl7 ED Course: 08:38 Patient arrived in ED. mr 08:39 Torito Branham PA is PHCP. jmm 08:39 Arturo Li MD is Attending Physician. jmm 08:47 Triage completed. jl7 08:47 Arm band placed on right wrist. jl7 09:10 Urine --Ancillary (enter results) Sent. mm9 09:19 Christine Benoit, MAYI is Primary Nurse. jl7 09:21 CBC with Diff Sent. mm9 09:21 CMP Sent. mm9 09:21 Lipase Sent. mm9 09:35 Inserted saline lock: 20 gauge in left antecubital area, using aseptic technique. jl7 09:57 CT Abd/Pelvis - IV Contrast Only In Process Unspecified. EDMS 10:25 Clinton Cornelius MD is Referral Physician. jmm 10:34 Patient has correct armband on for positive identification. Placed in gown. Bed in low jl7 position. Call light in reach. Side rails up X 1. Administered Medications: 09:35 Drug: NS 0.9% 1000 ml Route: IV; Rate: 1 bolus; Site: left antecubital; jl7 10:57 Follow up: Response: No adverse reaction; IV Status: Completed infusion; IV Intake: jl7 200ml ; Pt was not hjooked back up to IV fluids on return from CT 09:35 Drug: Zofran (Ondansetron) 4 mg Route: IVP; Site: left antecubital; jl7 09:50 Follow up: Response: No adverse reaction jl7 09:35 Drug: fentaNYL (PF) 50 mcg Route: IVP; Site: left antecubital; jl7 10:00 Follow up: Response: No adverse reaction; Pain is decreased jl7 10:57 Drug: Flagyl (metroNIDAZOLE) 500 mg Route: PO; jl7 10:58 Follow up: Response: Medication administered at discharge. jl7 10:57 Drug: LevaQUIN (levofloxacin) 750 mg Route: PO; jl7 10:58 Follow up: Response: Medication administered at discharge. jl7 Intake: 10:57 IV: 200ml; Total: 200ml. jl7 Outcome: 10:26 Discharge ordered by MD. rivera 10:59 Patient left the ED. jl7 Signatures: Dispatcher [employer] EDMS Torito Branham PA PA jmm Rivera, Mary mr Leal, Jahala, RN RN Ayde Christian mm9 Corrections: (The following items were deleted from the chart) 08:48 08:47 PSHx: hysteretomy; jl7 jl7
--- NOTE | 2022-10-26 10:26 | EDPHYS ---
Physician Documentation [facility] Name: Madonna Khan Age: 42 yrs Sex: Female : 1980 Arrival Date: 10/26/2022 Time: 08:38 Bed 12 Private MD: ED Physician Arturo Li HPI: 10/26 09:03 This 42 yrs old Female presents to ER via Ambulatory with complaints of Abdominal Pain. [facility] 09:03 The patient presents with abdominal pain. Onset: The symptoms/episode began/occurred jm gradually, 2 day(s) ago. The symptoms do not radiate. Associated signs and symptoms: Pertinent positives: Pertinent negatives: vomiting. The symptoms are described as achy. Modifying factors: The symptoms are alleviated by nothing, the symptoms are aggravated by nothing. The patient has experienced a previous episode. This is a 42 year old female with a history of sbo that presents to the ED with complaints of left sided abdominal pain beginning approx 2 days ago. Denies vomiting, diarrhea, but states having some chills beginning today.. 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 - Social history:: Smoking status: Patient denies any tobacco usage or history of. ROS: 09:03 Respiratory: Negative for shortness of breath, cough, wheezing, and pleuritic chest [facility] pain. 09:03 Constitutional: Positive for body aches, chills. 09:03 Abdomen/GI: Positive for abdominal pain, Negative for nausea and vomiting, diarrhea. 09:03 All other systems are negative. Exam: 09:03 Constitutional: This is a well developed, well nourished patient who is awake, alert, jmm and in no acute distress. Head/Face: atraumatic. Eyes: EOMI, no conjunctival erythema appreciated ENT: Moist Mucus Membranes Neck: Trachea midline, Supple Chest/axilla: Normal chest wall appearance and motion. Cardiovascular: Regular rate and rhythm. No edema appreciated Respiratory: Normal respirations, no respiratory distress appreciated 09:03 Back: Normal ROM Skin: General appearance color normal MS/ Extremity: Moves all extremities, no obvious deformities appreciated, no edema noted to the lower extremities Neuro: Awake and alert Psych: Behavior is normal, Mood is normal, Patient is cooperative and pleasant 09:03 Abdomen/GI: Inspection: abdomen appears normal, Bowel sounds: normal, Palpation: soft, moderate abdominal tenderness, in the left upper quadrant and left lower quadrant. Vital Signs: 08:44 BP 108 / 72; Pulse 115; Resp 17; Temp 98.9; Pulse Ox 100% ; Weight 81.19 kg; Height 5 jl7 ft. 6 in. (167.64 cm); Pain 9/10; 10:59 BP 111 / 57; Pulse 109; Resp 15; Pulse Ox 100% ; jl7 08:44 Body Mass Index 28.89 (81.19 kg, 167.64 cm) jl7 MDM: 09:03 Patient medically screened. [facility] 10:15 Data reviewed: vital signs, nurses notes. Counseling: I had a detailed discussion with nicole the patient and/or guardian regarding: the historical points, exam findings, and any diagnostic results supporting the discharge/admit diagnosis, lab results, radiology results, the need for outpatient follow up, to return to the emergency department if symptoms worsen or persist or if there are any questions or concerns that arise at home. ED course: Patient is alert and non toxic in appearance in the ED. Will try a course of oral abx. Patient advised to follow up with GI/Gen surgery for reevaluation. Patient is otherwise given strict return precautions. Patient understood and agrees with the plan of care. . 10/26 09:03 Order name: Urine --Ancillary (enter results); Complete Time: 09:16 eb 12 09:03 Order name: Urine Dipstick-Ancillary; Complete Time: 09:05 [facility] 10/26 09:05 Order name: CBC with Diff; Complete Time: 09:38 [facility] 10/26 09:05 Order name: CMP; Complete Time: 09:55 [facility] 10/26 09:05 Order name: Lipase; Complete Time: 09:55 [facility] 10/26 10:14 Order name: CREATININE WHOLE BLOOD; Complete Time: 10:25 [facility] 10/26 09:05 Order name: CT Abd/Pelvis - IV Contrast Only; Complete Time: 10:08 [facility] 10/26 09:05 Order name: IV Saline Lock; Complete Time: 09:21 [facility] 10/26 09:05 Order name: Labs collected and sent; Complete Time: 09:21 [facility] 10/26 09:05 Order name: Urine Dipstick-Ancillary (obtain specimen); Complete Time: 09:10 [facility] 10/26 09:05 Order name: Urine Test (obtain specimen); Complete Time: 09:10 [facility] Administered Medications: 09:35 Drug: NS 0.9% 1000 ml Route: IV; Rate: 1 bolus; Site: left antecubital; jl7 10:57 Follow up: Response: No adverse reaction; IV Status: Completed infusion; IV Intake: jl7 200ml ; Pt was not hjooked back up to IV fluids on return from [place] 09:35 Drug: Zofran (Ondansetron) 4 mg Route: IVP; Site: left antecubital; jl7 09:50 Follow up: Response: No adverse reaction 7 09:35 Drug: fentaNYL (PF) 50 mcg Route: IVP; Site: left antecubital; jl7 10:00 Follow up: Response: No adverse reaction; Pain is decreased jl7 10:57 Drug: Flagyl (metroNIDAZOLE) 500 mg Route: PO; jl7 10:58 Follow up: Response: Medication administered at discharge. jl7 10:57 Drug: LevaQUIN (levofloxacin) 750 mg Route: PO; jl7 10:58 Follow up: Response: Medication administered at discharge. jl7 Disposition: 16:56 Co-signature as Attending Physician, Arturo Li MD I agree with the assessment and rt plan of care. Disposition Summary: 10/26/22 10:26 Discharge Ordered Location: Home [facility] Condition: Stable [facility] Diagnosis - Acute Diverticulitis [facility] Followup: [facility] - With: Clinton Cornelius MD - When: 2 - 3 days - Reason: Recheck today's complaints, Continuance of care, Re-evaluation by your physician Discharge Instructions: - Discharge Summary Sheet [facility] - Diverticulitis [facility] Forms: - Medication Reconciliation Form [facility] - Thank You Letter [facility] - Antibiotic Education [facility] - Prescription Opioid Use [facility] - Work release form [facility] Prescriptions: - levofloxacin 750 mg Oral tablet - take 1 tablet by ORAL route once daily for 9 days; 9 tablet; Refills: 0, [facility] Product Selection Permitted - dicyclomine 20 mg Oral Tablet - take 1 tablet by ORAL route 4 times per day As needed; 30 tablet; Refills: 0, [facility] Product Selection Permitted - ondansetron 4 mg Oral tablet,disintegrating - take 1 tablet by ORAL route every 4 hours As needed; 20 tablet; Refills: 0, [facility] Product Selection Permitted - Flagyl 500 mg Oral Tablet - take 1 tablet by ORAL route every 6 hours for 10 days; 40 tablet; Refills: 0, [facility] Product Selection Permitted Signatures: Dispatcher [employer] EDTorito Bell PA PA jmm Leal, Jahala, RN RN [id number] Arturo Li MD MD rt Corrections: (The following items were deleted from the chart) 08:48 08:47 PSHx: hysteretomy; henrietta jl7
[2022-10-26] MEDS ORDERED: levoFLOXacin 750 MG TAB ONE (10:40)
[2022-10-26] MEDS ORDERED: metroNIDAZOLE 500 MG TABLET ONE (10:40)
[2022-10-26 11:21] VITALS: TEMP 98.9; O2SAT 100
[2022-10-26 11:22] VITALS: BP 111/57
== END 2022-10-26 10:59 | disposition home or self-care (01) ==
LOC: ER 08:34
DX: K57.32 Diverticulitis of large intestine without perforation or abscess without bleeding (principal); Z88.5 Allergy status to narcotic agent
CPT/HCPCS: 96361; 85025; 36415; 81025; 82565; 81003; 83690; 80053; 74177; 96375; 96374; 99284; Q9967; J3010; J7030; J2405